=== PATIENT | female | born 1970 | race Caucasian/White ===

== ENCOUNTER 2017-06-29 19:46 | Emergency (ER) | payer OTHER ==
[~2017-06-29] VITALS: Ht 160 cm; Wt 103.1 kg
[2017-06-29] MEDS ORDERED: diphenhydrAMINE 50 MG/ML VIAL IVP ONE (21:00)
[2017-06-29] MEDS ORDERED: KETOROLAC 30 MG/ML VIAL. IV ONE (21:00)
[2017-06-29] MEDS ORDERED: IV NORMAL SALINE 1,000ML 1,000 ML IV ONE (21:00)
--- NOTE | 2017-06-29 21:58 | PHYS DOC ---
Past History Past Medical History: Asthma, COPD, Other Past Surgical History: Tubal ligation Smoking: Cigarettes Alcohol Use: Occasionally Drug Use: None Adult General Chief Complaint Chief Complaint: HEADACHE HPI HPI Patient is a 46 year old female who presents with complaint of headache. The patient states that over the past week she has had several episodes where she has had lightheadedness immediately followed by headache and numbness to the bilateral forehead and cheeks. Patient states that she had an episode approximately 1 hour prior to arrival. Patient does have history of migraine headaches and patient states that she takes medication at home which is prescribed by her primary doctor. Patient did not take this medication before coming in. Patient states that her symptoms started at rest. Patient does admit to history of stress and anxiety. Patient states that she has had major life changes take place over the past 2 weeks both good and bad. The patient denies any unilateral weakness, difficulty with speech or swallowing, loss of vision or doubling of vision. Patient has had no fevers. Patient does admit to photophobia. Review of Systems Review of Systems Constitutional: Denies fever or chills [] Eyes: Denies change in visual acuity, redness, or eye pain [] HENT: Denies nasal congestion or sore throat [] Respiratory: Denies cough or shortness of breath [] Cardiovascular: Denies chest pain or edema[] GI: Denies abdominal pain, nausea, vomiting, bloody stools or diarrhea [] : Denies dysuria or hematuria [] Musculoskeletal: Denies back pain or joint pain [] Integument: Denies rash or skin lesions [] Neurologic: Headache, facial numbness, denies focal weakness[] All other systems were reviewed and found to be within normal limits, except as documented in this note. Current Medications Current Medications Current Medications Medications (Trade) Dose Ordered Sig/Shirlene Start Time Stop Time Status Last Admin Dose Admin Diphenhydramine HCl (Benadryl) 50 mg 1X ONCE 06/29/17 21:00 06/29/17 21:01 DC 06/29/17 21:08 50 MG Ketorolac Tromethamine (Toradol) 30 mg 1X ONCE 06/29/17 21:00 06/29/17 21:01 DC Sodium Chloride 1,000 ml @ 1,000 mls/hr 1X ONCE 06/29/17 21:00 2/15/18 21:59 06/29/17 21:00 1,000 MLS/HR Allergies Allergies Allergies Coded Allergies Type Severity Reaction Last Updated Verified No Known Drug Allergies 10/31/14 No Physical Exam Physical Exam Constitutional: Alert, afebrile, vital signs stable, appears in mild to moderate discomfort. [] HENT: Normocephalic, atraumatic, bilateral external ears normal, oropharynx moist, no oral exudates, nose normal. [] Eyes: PERRLA, EOMI, mild photophobia present, conjunctiva normal, no discharge. [] Neck: Normal range of motion, no tenderness, supple, no stridor. [] Cardiovascular:Heart rate regular rhythm, no murmur [] Lungs & Thorax: Bilateral breath sounds clear to auscultation [] Abdomen: Bowel sounds normal, soft, no tenderness, no masses, no pulsatile masses. [] Skin: Warm, dry, no erythema, no rash. [] Back: No tenderness, no CVA tenderness. [] Extremities: No tenderness, no cyanosis, no clubbing, ROM intact, no edema. [] Neurologic: Alert and oriented X 3, normal motor function, normal sensory function, no focal deficits noted. [] EKG EKG Not performed[] Radiology/Procedures Radiology/Procedures Not performed[] Course & Med Decision Making Course & Med Decision Making Pertinent Labs and Imaging studies reviewed. (See chart for details) The patient was treated with IV fluids, Toradol, Benadryl, and Compazine. Patient's facial numbness has resolved. The patient states that she is feeling better at this time. The patient will be referred to Dr. Wang of neurology for outpatient evaluation of her migraine symptoms. Advised return emergency department for any worsening symptoms. Patient voiced understanding and in agreement with treatment plan. Dragon Disclaimer Dragon Disclaimer This electronic medical record was generated, in whole or in part, using a voice recognition dictation system. Departure Departure: Impression: Primary Impression: Migraine headache Disposition: 01 HOME, SELF-CARE Condition: IMPROVED Referrals: DONTAE BLACK (PCP) CHARISSE WANG MD Patient Instructions: Migraine Headache Additional Instructions: Follow-up with Dr. Wang in one week for reevaluation. Return to emergency department for any worsening symptoms. Problem Qualifiers Primary Impression: Migraine headache Migraine type: without aura Status migrainosus presence: without status migrainosus Intractability: not intractable Qualified Codes: G43.009 - Migraine without aura, not intractable, without status migrainosus PAPI MAYORGA MD Jun 29, 2017 21:58
[2017-06-29] MEDS ORDERED: PROCHLORPERAZINE 10 MG/2 ML VIAL. IV ONE (22:00)
[2017-06-29 22:07] VITALS: BP 126/73
--- NOTE | 2017-06-30 05:38 | EKG ---
[address] [address] Test Date: 2017-06-29 Test Time: 20:06:51 Pat Name: SOUMYA MUÑOZ Department: Room: Gender: F Appeals Writer: : 1970 Requested By: PAPI MAYORGA Order Number: [id number] Reading MD: Neeraj Valenzuela Measurements Intervals [place] Rate: 77 P: 0 MA: 128 QRS: 25 QRSD: 74 T: 16 QT: 374 QTc: 425 Interpretive Statements SINUS RHYTHM NORMAL ECG RI6.01 Compared to ECG 07/27/2015 08:16:53 ST (T wave) deviation no longer present Electronically Signed On 07-05-2017 9:31:36 TELEMARKETING AGENT by Neeraj Valenzuela
== END 2017-06-29 22:21 | disposition home or self-care (01) ==
LOC: ER 19:46
DX: G43.009 Migraine without aura, not intractable, without status migrainosus (principal); J44.9 Chronic obstructive pulmonary disease, unspecified; F41.9 Anxiety disorder, unspecified; F17.210 Nicotine dependence, cigarettes, uncomplicated
CPT/HCPCS: 96361; 96374; 96375; 99284; J0780; J1200; J1885; J7030

== ENCOUNTER 2018-02-01 23:41 | Observation (INO) | payer OTHER ==
[~2018-02-01] VITALS: Ht 160 cm; Wt 100.7 kg
[2018-02-02] MEDS ORDERED: CONTRAST GIVEN MC PRN (01:00)
[2018-02-02] MEDS ORDERED: IOHEXOL 300 MG/ML 75 ML VIAL. IV ONE (01:00)
[2018-02-02] MEDS ORDERED: LORazepam 2 MG/ML VIAL IV ONE (01:00)
[2018-02-02 01:07] LABS: BASO # 0.1 x10^3/uL (0.0-0.2); BASO % 1 % (0-3); EOS # 0.1 x10^3/uL (0.0-0.7); EOS % 0 % (0-3); HEMATOCRIT 40.2 % (36.0-47.0); HEMOGLOBIN 13.7 g/dL (12.0-15.5); LYMPH # 4.8 x10^3/uL (1.0-4.8); LYMPH % 28 % (24-48); MEAN CORPUSCULAR HEMOGLOBIN 31 pg (25-35); MEAN CORPUSCULAR HGB CONC 34 g/dL (31-37); MEAN CORPUSCULAR VOLUME 92 fL (79-100); MONO % 6 % (0-9); NEUT # 11.4 x10^3uL (1.8-7.7); NEUT % 66 % (31-73); PLATELET COUNT 399 x10^3/uL (140-400); RED BLOOD COUNT 4.37 x10^6/uL (3.50-5.40); RED CELL DISTRIBUTION WIDTH 13.3 % (11.5-14.5); WHITE BLOOD COUNT 17.4 x10^3/uL (4.0-11.0)
[2018-02-02 01:23] LABS: % BANDS 4 % (0-9); % LYMPHS 27 % (24-48); % MONOS 3 % (0-10); % SEGS 66 % (35-66)
[2018-02-02 01:24] LABS: PLT ESTIMATE ADEQUATE (ADEQUATE)
[2018-02-02 01:29] LABS: ALBUMIN 3.5 g/dL (3.4-5.0); ALBUMIN/GLOBULIN RATIO 0.9 (1.0-1.7); CALCIUM 9.4 mg/dL (8.5-10.1); GFR 59.2; TOTAL BILIRUBIN 0.3 mg/dL (0.2-1.0); TOTAL PROTEIN 7.2 g/dL (6.4-8.2)
--- NOTE | 2018-02-02 01:31 | RAD ---
Examination: CT angiography chest HISTORY: History of chest pain COMPARISON: 07/25/2015 TECHNIQUE: Axial CT angiographic images were performed with IV contrast. Coronal and sagittal 3-D MIP reformats are performed. Exposure: One or more of the following individualized dose reduction techniques were utilized for this examination: 1. Automated exposure control 2. Adjustment of the mA and/or kV according to patient size 3. Use of iterative reconstruction technique FINDINGS: The central airways are patent. Aberrant right subclavian artery is identified coursing posterior to the esophagus. There is no evidence of filling defect identified in the main pulmonary arterial trunk and right and left main pulmonary arteries and the visualized lobar, segmental branches of the pulmonary arteries. Coronary artery calcifications. The caliber of the aorta grossly appears unremarkable. There is a 7 mm round nodule identified in the right upper lobe of the lung similar to prior exam. Tiny cysts identified in the left upper lobe of the lungs similar to prior exam. The visualized liver, spleen, adrenals grossly appears unremarkable Cholecystectomy clips identified. Mild degenerative changes thoracic spine. IMPRESSION: 1. No evidence of pulmonary embolism. 2. Stable 7 mm nodule right upper lobe of the lung. 3. 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 Electronically signed by: Candelario Kearns MD (02/02/2018 1:27 AM) [facility]
[2018-02-02 01:32] LABS: POTASSIUM 4.1 mmol/L (3.5-5.1)
--- NOTE | 2018-02-02 01:32 | ED.ADGEN ---
Past History Past Medical History: Anxiety, Asthma, COPD, Diabetes, Migraines, Other Past Surgical History: Tubal ligation Smoking: Cigarettes Alcohol Use: Occasionally Drug Use: None Adult General Chief Complaint Chief Complaint SOA HPI HPI Patient is a 47-year-old female smoker with history of COPD, asthma who presents with persistent shortness of breath with dry cough 2 weeks. Patient has been evaluated for this complaint by her PCP and another specialist in clinic. Recently completed prednisone, Zithromax. She reports negative outpatient chest and chest x-ray. She is scheduled to see her doctor in the morning for reevaluation, but states that as her symptoms worsen she was instructed to go to the emergency department. No fever, chills, nausea vomiting or sweats. Reports some chest tightness denies chest wall no leg pain, swelling history of DVT, CAD, or congestive heart failure. No history of valvular heart disease. No other acute symptoms or complaints. [] Review of Systems Review of Systems Review symptoms as per history of present illness. All other review symptoms are negative. All other systems were reviewed and found to be within normal limits, except as documented in this note. Current Medications Current Medications Current Medications Medications (Trade) Dose Ordered Sig/Shirlene Start Time Stop Time Status Last Admin Dose Admin Info (Do NOT chart on this entry -- for MONITORING) 1 each PRN DAILY PRN 02/02/18 01:00 02/04/18 00:59 Iohexol (Omnipaque 300 Mg/ml) 75 ml 1X ONCE 02/02/18 01:00 02/02/18 01:01 DC 02/02/18 01:04 75 ML Lorazepam (Ativan) 1 mg 1X ONCE 02/02/18 01:00 02/02/18 01:01 DC 02/02/18 00:59 1 MG Allergies Allergies Allergies Coded Allergies Type Severity Reaction Last Updated Verified No Known Drug Allergies 10/31/14 No Physical Exam Physical Exam Constitutional: Well developed, well nourished, anxious[] HENT: Normocephalic, atraumatic, bilateral external ears normal, oropharynx moist, no oral exudates, nose normal. [] Eyes: PERRLA, EOMI, conjunctiva normal, no discharge. [] Neck: Normal range of motion, no tenderness, supple, no stridor. [] Cardiovascular:Heart rate regular rhythm, no murmur, negative Homans signs. [] Lungs & Thorax: Mild tachypnea, Bilateral breath sounds clear to auscultation [ ] Abdomen: Bowel sounds normal, soft, no tenderness. [] Skin: Warm, dry, no erythema, no rash. [] Back: No tenderness. [] Extremities: No tenderness, no cyanosis, no clubbing, ROM intact, no edema. [] Neurologic: Alert and oriented X 3, normal motor function, normal sensory function, no focal deficits noted. [] Current Patient Data Vital Signs Vital Signs Date Time Temp Pulse Resp B/P (MAP) Pulse Ox O2 Delivery O2 Flow Rate FiO2 02/02/18 01:50 71 20 117/90 (99) 96 Room Air Lab Results Laboratory Tests Test 02/02/18 00:52 White Blood Count 17.4 x10^3/uL (4.0-11.0) H Red Blood Count 4.37 x10^6/uL (3.50-5.40) Hemoglobin 13.7 g/dL (12.0-15.5) Hematocrit 40.2 % (36.0-47.0) Mean Corpuscular Volume 92 fL (79-100) Mean Corpuscular Hemoglobin 31 pg (25-35) Mean Corpuscular Hemoglobin Concent 34 g/dL (31-37) Red Cell Distribution Width 13.3 % (11.5-14.5) Platelet Count 399 x10^3/uL (140-400) Neutrophils (%) (Auto) 66 % (31-73) Lymphocytes (%) (Auto) 28 % (24-48) Monocytes (%) (Auto) 6 % (0-9) Eosinophils (%) (Auto) 0 % (0-3) Basophils (%) (Auto) 1 % (0-3) Neutrophils # (Auto) 11.4 x10^3uL (1.8-7.7) H Lymphocytes # (Auto) 4.8 x10^3/uL (1.0-4.8) Monocytes # (Auto) 1.0 x10^3/uL (0.0-1.1) Eosinophils # (Auto) 0.1 x10^3/uL (0.0-0.7) Basophils # (Auto) 0.1 x10^3/uL (0.0-0.2) Segmented Neutrophils % 66 % (35-66) Band Neutrophils % 4 % (0-9) Lymphocytes % 27 % (24-48) Monocytes % 3 % (0-10) Platelet Estimate Adequate (ADEQUATE) Erythrocyte Sedimentation Rate 15 (0-25) Sodium Level 136 mmol/L (136-145) Potassium Level 4.1 mmol/L (3.5-5.1) Chloride Level 101 mmol/L (98-107) Carbon Dioxide Level 23 mmol/L (21-32) Anion Gap 12 (6-14) Blood Urea Nitrogen 25 mg/dL (7-20) H Creatinine 1.0 mg/dL (0.6-1.0) Estimated GFR (Cockcroft-Gault) 59.2 BUN/Creatinine Ratio 25 (6-20) H Glucose Level 262 mg/dL (70-99) H Calcium Level 9.4 mg/dL (8.5-10.1) Total Bilirubin 0.3 mg/dL (0.2-1.0) Aspartate Amino Transferase (AST) 16 U/L (15-37) Alanine Aminotransferase (ALT) 21 U/L (14-59) Alkaline Phosphatase 85 U/L (46-116) Troponin I Quantitative < 0.017 ng/mL (0-0.055) C-Reactive Protein 1.8 mg/L (0-3.3) QL-Mfc-D-Type Natriuretic Peptide 75 pg/mL (0-124) Total Protein 7.2 g/dL (6.4-8.2) Albumin 3.5 g/dL (3.4-5.0) Albumin/Globulin Ratio 0.9 (1.0-1.7) L EKG EKG [EKG: Sinus rhythm, rate 68, no acute ST-T wave changes, QTC 4:15.] Radiology/Procedures Radiology/Procedures [CTA chest: No evidence of PE per radiology report] Course & Med Decision Making Course & Med Decision Making Pertinent Labs and Imaging studies reviewed. (See chart for details) [Patient's exam unremarkable other than exceptions of occasional cough and anxiety. Vital signs stable. Symptoms improved with treatment of anxiety. Lab, and imaging studies reviewed. Mild leukocytosis, possibly remnant of recent steroid use versus infection. Patient remains mild tachypnea despite Ativan. Will admit to the hospital service for further evaluation and treatment as the patient is uncomfortable going home and following up with her PCP in the a.m.] Final Impression Final Impression [1. Dyspnea] Gelacio Disclaimer Gelacio Disclaimer This electronic medical record was generated, in whole or in part, using a voice recognition dictation system. JUSTINA MCINTOSH DO Feb 02, 2018 01:32
[2018-02-02 02:36] VITALS: BP 105/74
[2018-02-02 03:25] LABS: CLARITY,URINE CLEAR; COLOR,URINE YELLOW; GLUCOSE,URINE 100 mg/dL (NEG)
[2018-02-02 03:26] LABS: BACTERIA,URINE 0 /HPF (0-FEW); BILIRUBIN,URINE NEG (NEG); NITRITE,URINE NEG (NEG); RBC,URINE RARE /HPF (0-2); SQUAMOUS EPITHELIAL CELL,UR OCC /LPF; UROBILINOGEN,URINE 0.2 mg/dL (0.2 mg/dL); WBC,URINE RARE /HPF (0-4)
[2018-02-02] MEDS ORDERED: Influenza vaccine per PROTOCOL. MC PRN (03:30)
[2018-02-02] MEDS ORDERED: ATOR20TA58 PO (04:11)
[2018-02-02] MEDS ORDERED: BUPR150T8 PO (04:11)
[2018-02-02] MEDS ORDERED: METF500T16 PO (04:11)
[2018-02-02 05:05] LABS: BGAS PH 7.43 (7.35-7.45)
[2018-02-02 05:18] VITALS: BP 111/71
[2018-02-02 08:45] LABS: CALCIUM 8.7 mg/dL (8.5-10.1); CREATININE 0.9 mg/dL (0.6-1.0); GFR 66.8; POTASSIUM 3.8 mmol/L (3.5-5.1)
[2018-02-02 08:58] LABS: HEMOGLOBIN 13.1 g/dL (12.0-15.5); RED BLOOD COUNT 4.24 x10^6/uL (3.50-5.40); RED CELL DISTRIBUTION WIDTH 13.2 % (11.5-14.5); WHITE BLOOD COUNT 13.3 x10^3/uL (4.0-11.0)
[2018-02-02] MEDS ORDERED: ATORVASTATIN CALCIUM 20 MG TABLET PO SCH (09:00)
[2018-02-02] MEDS ORDERED: buPROPion SR 150 MG TABLET.SA PO SCH (09:00)
--- NOTE | 2018-02-02 09:22 | PDOC2 ---
CONSULT Date of Admission DATE: 02/02/18 TIME: : Reason for Consult: cp Problem List Problems Medical Problems: (1) Dyspnea Status: Acute History of Present Illness Ms Payne is a 44 year old female with history of hyperlipidemia and newly diagnosed diabetes mellitus type 2. She presents with complaints of chest pain off and on the same as the pain she had in 2015 when she underwent heart cath. She also reports a feeling of being unable to catch her breath. She reports that her dyspnea and discomfort occur both at rest and with exertion. She recently finished antibiotic and steroid therapy for bronchitis. She denies additional symptoms. Her report concern that some of her symptoms may be anxiety related. She also expresses concern that her symptoms may interfere with a liposuction surgery she has planned in the near future. Past Medical History cardiac cath 07/2015 small focal myocardial bridge mid lad with possible mild spasm otherwise normal coronaries echo 07/2015 Normal LV systolic function. EF 60% No significant valvular abnormalities. asthma, hyperlipidemia, diabetes mellitus type II Past Surgical History cholecystectomy D and C knee surgery Family History significant for TIAs in her mother Her brother in his mid 30s and on autopsy was found to have extensive coronary disease Social History She recently quit smoking Social ETOH no illicit drugs Current Medications Current Medications Lorazepam (Ativan) 1 mg 1X ONCE IV Last administered on 02/02/18at 00:59; Start 02/02/18 at 01:00; Stop 02/02/18 at 01:01; Status DC Iohexol (Omnipaque 300 Mg/ml) 75 ml 1X ONCE IV Last administered on 02/02/18at 01:04; Start 02/02/18 at 01:00; Stop 02/02/18 at 01:01; Status DC Info (Do NOT chart on this entry -- for MONITORING) 1 each PRN DAILY PRN MC SEE COMMENTS; Start 02/02/18 at 01:00; Stop 02/04/18 at 00:59 Info (FLU VACCINE per PROTOCOL) 1 ea PRN 1X PRN MC PER PROTOCOL; Start at 03:30; Status UNV Influenza Virus Vaccine (Afluria Trivalent [id number] Syringe) 0.5 ml ONCE ONCE VAX IM ; Start 02/02/18 at 09:00; Stop 02/02/18 at 09:01; Status DC Atorvastatin Calcium (Lipitor) 20 mg DAILY PO Last administered on 02/02/18at 08 :50; Start 02/02/18 at 09:00 Bupropion HCl (Wellbutrin Sr) 150 mg BID PO Last administered on 02/02/18at 08: 50; Start 02/02/18 at 09:00 Metformin HCl (Glucophage) 1,000 mg DAILYWBKFT PO ; Start 02/04/18 at 08:00 Active Scripts Active Reported Wellbutrin Sr (Bupropion Hcl) 150 Mg Tablet.er 150 Mg PO BID Atorvastatin Calcium 20 Mg Tablet 20 Mg PO DAILY Metformin Hcl 500 Mg Tablet 1,000 Mg PO DAILY08 Allergies: Coded Allergies: No Known Drug Allergies (Unverified , 10/31/14) Review of System as per HPI or negative General: Alert, Oriented X3, Cooperative, No acute distress HEENT: Atraumatic, EOMI Lungs: Clear to auscultation, Normal air movement Heart: Regular rate, Normal S1, Normal S2, Other (no significant murmurs, no gallops, clicks or rubs) Abdomen: Normal bowel sounds, Soft, No tenderness Extremities: No cyanosis, Normal pulses Neuro: Normal speech, Cranial nerves 3-12 NL Psych/Mental Status: Mental status NL, Mood NL VITALS Vital Signs Date Time Temp Pulse Resp B/P (MAP) Pulse Ox O2 Delivery O2 Flow Rate FiO2 02/02/18 05:18 97.8 71 18 111/71 (84) 99 Room Air Labs Laboratory Tests Test 02/02/18 00:52 02/02/18 03:05 02/02/18 04:50 02/02/18 08:20 White Blood Count 17.4 x10^3/uL (4.0-11.0) Red Blood Count 4.37 x10^6/uL (3.50-5.40) Hemoglobin 13.7 g/dL (12.0-15.5) Hematocrit 40.2 % (36.0-47.0) Mean Corpuscular Volume 92 fL (79-100) Mean Corpuscular Hemoglobin 31 pg (25-35) Mean Corpuscular Hemoglobin Concent 34 g/dL (31-37) Red Cell Distribution Width 13.3 % (11.5-14.5) Platelet Count 399 x10^3/uL (140-400) Neutrophils (%) (Auto) 66 % (31-73) Lymphocytes (%) (Auto) 28 % (24-48) Monocytes (%) (Auto) 6 % (0-9) Eosinophils (%) (Auto) 0 % (0-3) Basophils (%) (Auto) 1 % (0-3) Neutrophils # (Auto) 11.4 x10^3uL (1.8-7.7) Lymphocytes # (Auto) 4.8 x10^3/uL (1.0-4.8) Monocytes # (Auto) 1.0 x10^3/uL (0.0-1.1) Eosinophils # (Auto) 0.1 x10^3/uL (0.0-0.7) Basophils # (Auto) 0.1 x10^3/uL (0.0-0.2) Segmented Neutrophils % 66 % (35-66) Band Neutrophils % 4 % (0-9) Lymphocytes % 27 % (24-48) Monocytes % 3 % (0-10) Platelet Estimate Adequate (ADEQUATE) Erythrocyte Sedimentation Rate 15 (0-25) Sodium Level 136 mmol/L (136-145) 138 mmol/L (136-145) Potassium Level 4.1 mmol/L (3.5-5.1) 3.8 mmol/L (3.5-5.1) Chloride Level 101 mmol/L (98-107) 104 mmol/L (98-107) Carbon Dioxide Level 23 mmol/L (21-32) 27 mmol/L (21-32) Anion Gap 12 (6-14) 7 (6-14) Blood Urea Nitrogen 25 mg/dL (7-20) 20 mg/dL (7-20) Creatinine 1.0 mg/dL (0.6-1.0) 0.9 mg/dL (0.6-1.0) Estimated GFR (Cockcroft-Gault) 59.2 66.8 BUN/Creatinine Ratio 25 (6-20) Glucose Level 262 mg/dL (70-99) 208 mg/dL (70-99) Calcium Level 9.4 mg/dL (8.5-10.1) 8.7 mg/dL (8.5-10.1) Total Bilirubin 0.3 mg/dL (0.2-1.0) Aspartate Amino Transf (AST/SGOT) 16 U/L (15-37) Alanine Aminotransferase (ALT/SGPT) 21 U/L (14-59) Alkaline Phosphatase 85 U/L (46-116) Troponin I Quantitative < 0.017 ng/mL (0-0.055) < 0.017 ng/mL (0-0.055) C-Reactive Protein 1.8 mg/L (0-3.3) GB-Ybm-L-Type Natriuretic Peptide 75 pg/mL (0-124) Total Protein 7.2 g/dL (6.4-8.2) Albumin 3.5 g/dL (3.4-5.0) Albumin/Globulin Ratio 0.9 (1.0-1.7) Urine Collection Type Unknown Urine Color Yellow Urine Clarity Clear Urine pH 6.0 Urine Specific [place] 1.015 Urine Protein Neg (NEG-TRACE) Urine Glucose (UA) 100 mg/dL (NEG) Urine Ketones (Stick) Trace mg/dL (NEG) Urine Blood Small (NEG) Urine Nitrite Neg (NEG) Urine Bilirubin Neg (NEG) Urine Urobilinogen Dipstick 0.2 mg/dL (0.2 mg/dL) Urine Leukocyte Esterase Neg (NEG) Urine RBC Rare /HPF (0-2) Urine WBC Rare /HPF (0-4) Urine Squamous Epithelial Cells Occ /LPF Urine Bacteria 0 /HPF (0-FEW) Blood Gas pH 7.43 (7.35-7.45) Blood Gas PCO2 35 mmHg (35-45) Blood Gas PO2 82 mmHg (80-100) Blood Gas HCO3 24 mmol/L (22-26) Arterial Bld O2 Saturation (Calc) 97 % (92-99) FiO2 21 % Images CTA - IMPRESSION: 1. No evidence of pulmonary embolism. 2. Stable 7 mm nodule right upper lobe of the lung. 3. 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 EKG - unavailable Assessment/Plan 1. CP - Sen negative x 2 sets. Pain free currently. Prior cardiac cath as above. Will add Ranexa and consider cardizem if blood pressure remains stable for bridging and spasm. Will check echo and set up for outpatient MPI next week as she will need a surgical clearance. 2. HTN - controlled 3. HLD - check lipids 4. DM - as per PCP MUKESH SWAIN APRN Feb 02, 2018 09:22
--- NOTE | 2018-02-02 09:58 | EKG ---
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
[2018-02-02 11:00] VITALS: BP 114/79
[2018-02-02] MEDS ORDERED: ASPIRIN ENTERIC COATED 81 MG TABLET.DR. PO SCH (11:30)
[2018-02-02] MEDS ORDERED: RANOLAZINE 500 MG TAB.ER.12H PO SCH (13:00)
[2018-02-02 15:10] VITALS: BP 101/68
--- NOTE | 2018-02-02 15:42 | CARD ---
MR#: [id number] Date of Study: 02/02/2018 Ordering Physician: SILVANO MOORE, Referring Physician: SILVANO MOORE Tech: Gabrielle Barroso RDCS APPROVED REPORT EXAM: Two-dimensional and M-mode echocardiogram with Doppler and color Doppler. Other Information Quality : Good INDICATION Chest Pain RISK FACTORS Smoking 2D DIMENSIONS RVDd2.8 (2.9-3.5cm)Left Atrium(2D)3.3 (1.6-4.0cm) IVSd0.9 (0.7-1.1cm)Aortic Root(2D)2.9 (2.0-3.7cm) LVDd5.1 (3.9-5.9cm)LVOT Diameter2.2 (1.8-2.4cm) PWd0.9 (0.7-1.1cm)LVDs3.3 (2.5-4.0cm) FS (%) 34.6 %SV78.0 ml LVEF(%)60.0 (>50%) Aortic Valve AoV Peak Jorge.152.5cm/Jasson Peak GR.9.3mmHg LVOT Peak Jorge.123.8cm/sAVA (VMAX)3.07cm2 Mitral Valve MV E Cflanfqy61.0cm/sMV DECEL YXAI538oe MV A Zymjrxwa56.7cm/sE/A Ratio1.2 Tricuspid Valve TR P. Sjkmrjmj135wt/sRAP CGXMSKWD1kuQm TR Peak Gr.60isZnAFOD33duDs Pulmonary Vein S1 Zpicstuz21.1cm/sD2 Eixelmgb09.2cm/s LEFT VENTRICLE The left ventricle is normal size. There is normal left ventricular wall thickness. The left ventricu lar systolic function is normal. The Ejection Fraction is 55-60%. There is normal LV segmental wall m otion. The left ventricular diastolic function and filling is normal for age. RIGHT VENTRICLE The right ventricle is normal size. The right ventricular systolic function is normal. ATRIA The left atrium size is normal. The right atrium size is normal. The interatrial septum is intact wit h no evidence for an atrial septal defect or patent foramen ovale as noted on 2-D or Doppler imaging. AORTIC VALVE The aortic valve is calcified but opens well. Doppler and Color Flow revealed no significant aortic r egurgitation. There is no significant aortic valvular stenosis. MITRAL VALVE The mitral valve is normal in structure and function. There is no evidence of mitral valve prolapse. There is no mitral valve stenosis. Doppler and Color-flow revealed trace to mild mitral regurgitation . TRICUSPID VALVE The tricuspid valve is normal in structure and function. Doppler and Color Flow revealed trace tricus pid regurgitation. The PA pressure was estimated at 26 mmHg. There is no tricuspid valve stenosis. PULMONIC VALVE The pulmonic valve is not well visualized. Doppler and Color Flow revealed no pulmonic valvular regur gitation. There is no pulmonic valvular stenosis. GREAT VESSELS The aortic root is normal in size. The ascending aorta is normal in size. The IVC is normal in size a nd collapses >50% with inspiration. PERICARDIAL EFFUSION There is no evidence of significant pericardial effusion. Critical Notification Critical Value: No <Conclusion> The left ventricular systolic function is normal. The Ejection Fraction is 55-60%. There is normal LV segmental wall motion. Trace to mild mitral regurgitation. Trace tricuspid regurgitation. The PA pressure was estimated at 26 mmHg. There is no evidence of significant pericardial effusion. Signed by : Dillon Maurice, Electronically Approved : 02/02/2018 15:41:39
[2018-02-02] MEDS ORDERED: RANO500T2 PO (16:33)
--- NOTE | 2018-02-02 23:11 | HP ---
ADMIT DATE: 02/02/2018 HISTORY OF PRESENT ILLNESS: The patient is a 47-year-old female patient, who basically came to the Emergency Room with persistent shortness of breath and dry cough for 2 weeks. The patient has been evaluated for this complaint by her primary care physician and other specialists in the clinic. She has recently completed prednisone and Zithromax. She reports a negative outpatient chest CT scan and chest x-ray. She is scheduled to see her doctor in the morning for reevaluation but states that her symptom worsened, she was instructed to go to the Emergency Department. She denied any fever, chills, nausea, vomiting or sweats. On questioning her further, she stated that she is actually having difficulty taking a deep breath at rest. The pain is mostly retrosternal. According to her, she has had Botox treatment for headaches done about 2 weeks ago and about a week later, she started having these symptoms. She was basically admitted after extensive evaluation in the Emergency Room that included an EKG. Her lab work showed a white cell count that was high at 17,400. Her blood gases were within normal range and her first set of cardiac enzymes showed that the troponin to be less than 0.017. Her EKG showed that she was in sinus rhythm at a rate of 68 beats per minute with no acute ST-T changes, she was admitted to do more sets of cardiac enzyme and to consult the cardiology team and also given that she has this Botox injection, it was extensively injected along her both shoulders, back of the neck, the side of the head and also the forehead. PAST MEDICAL HISTORY: Significant for type 2 diabetes, hyperlipidemia, chronic bronchitis, and chronic migraine headache for which she received Botox for the second time. She also underwent cardiac catheterization about 2-1/2 years ago. PAST SURGICAL HISTORY: Significant for cholecystectomy, wisdom tooth extraction, tubal ligation, left knee arthroscopic surgery x 2, uterine ablation and ovarian cyst removal. ALLERGIES: She has no known drug allergies. MEDICATIONS: She is currently on following medications: She is on atorvastatin calcium 20 mg at bedtime, Wellbutrin-SR 150 mg p.o. b.i.d., this is to help with smoking cessation and she is on metformin 500 mg, she takes 1000 mg once a day. FAMILY HISTORY: She has 3 brothers and 3 sisters. Her oldest sister has apparently bradycardia and hypoxia for which she is on oxygen. Her father is still alive at age of 71, has heart problem and diabetes. Her mother is alive at age of 69, she has CVA and myocardial infarction at the age of 65. SOCIAL HISTORY: She is , smokes 6-8 cigarettes per day. She does not drink alcohol or use any recreational drugs. 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 REVIEW OF SYSTEMS: The patient denied any blurring of vision, cataract, glaucoma or macular degeneration. Denied any diplopia. Denied any earache, tinnitus or sensorineural deafness. Denied any nosebleeds, stuffy nose or postnasal drip. Denied any sore throat, sore tongue, toothache, hoarseness of voice or difficulty swallowing. Denied any nausea, vomiting, diarrhea or constipation. Denied any hematemesis, melena or hematochezia. Denied any dysuria, frequency or hematuria. He did complain of chest pain and shortness of breath, but denied any orthopnea or paroxysmal nocturnal dyspnea. Did complain of cough, which is dry. Denied any chills, rigors or fever. PHYSICAL EXAMINATION: GENERAL: When I examined her, she was resting slightly propped up in bed, in no apparent respiratory distress. No pallor, jaundice or cyanosis. No lymphadenopathy, no thyromegaly. No jugular venous distension. No lower limb edema. VITAL SIGNS: Her heart rate was 71, blood pressure was 111/71, temperature was 97.8, respiratory rate was 18 and oxygen saturation was 99% on room air. HEAD: Showed normocephalic, atraumatic. NECK: Supple. HEART: Showed normal first and second sounds. No gallop, rub or murmur. CHEST: Clear to auscultation. No crepitation or rhonchi. ABDOMEN: Distended, soft, nontender. NEUROLOGIC: She was awake, alert, responding appropriately. All her cranial nerves intact. EXTREMITIES: She moves extremities without difficulty. LABORATORY DATA: Her lab work on arrival showed a white cell count of 17,400, hemoglobin 13.7, hematocrit 40, MCV 92, and platelet count of 399,000. Her blood gases showed a pH of 7.43, pCO2 of 35, pO2 of 82, bicarbonate 24, and oxygen saturation was 97% on FiO2 of 21%. Her chemistry showed that her serum sodium was 136, potassium 4.1, chloride 101, bicarbonate 23, anion gap of 12, BUN 25, creatinine 1, estimated GFR was 59 mL per minute. Her glucose was 262, calcium was 9.4. Total bilirubin, AST, ALT, alkaline phosphatase were normal. Her beta-natriuretic peptide was 75. Total protein was 7.2, albumin was 3.5. Urinalysis showed the urine was yellow, clear with a pH of 6, specific gravity of 1.015. The urine was negative for protein. There was small amount of glucose, trace of ketones, small amount of blood, negative for nitrite and leukocyte esterase. There were rare rbc's, rare wbc's, and no bacteria. She did have a CT scan of the chest with CT angio of the chest, which showed that the patient has aberrant right subclavian artery was identified coursing posterior to the esophagus. There was no evidence of filling defects identified in the main pulmonary arterial trunk and right and left main pulmonary arteries, the visualized lobar, segmental branches of the pulmonary arteries, coronary artery calcification. The caliber of the aorta grossly appears unremarkable. There was a 7 mm round nodule identified in the right upper lobe of the lung, similar to prior exam, tiny cyst identified in the left upper lobe of the lungs similar to prior exam. The visualized liver, spleen, adrenals grossly appear unremarkable. Cholecystectomy clips identified. Mild degenerative changes of thoracic spine and the impression was basically has no evidence of pulmonary embolism, stable 7 mm nodule in the right upper lobe of the lung. Aberrant right subclavian artery, likely developmental. Her first set of cardiac enzyme was 0.017. The patient was admitted to do 2 more sets of cardiac enzyme, consult the Cardiology team as well as neurologist and decide on further management accordingly. SILVANO MOORE MD DR: MOE/mario JOB#: [id number] / [id number]
[2018-02-04] MEDS ORDERED: metFORMIN 500 MG TABLET PO SCH (08:00)
== END 2018-02-02 18:58 | disposition home or self-care (01) ==
LOC: ER 23:41 → 1 SOUTH 02-02 02:00 → INTOOBSV 02-02 02:00
PROVIDERS: ADMIT Internal Medicine; ATTEND Internal Medicine
DX: R07.9 Chest pain, unspecified (principal); E78.5 Hyperlipidemia, unspecified; E11.9 Type 2 diabetes mellitus without complications; G43.909 Migraine, unspecified, not intractable, without status migrainosus; R06.00 Dyspnea, unspecified; J44.9 Chronic obstructive pulmonary disease, unspecified; F41.9 Anxiety disorder, unspecified; F17.210 Nicotine dependence, cigarettes, uncomplicated; I10 Essential (primary) hypertension; Z82.3 Family history of stroke; Z82.49 Family history of ischemic heart disease and other diseases of the circulatory system; Z83.3 Family history of diabetes mellitus; Z98.51 Tubal ligation status; Z79.899 Other long term (current) drug therapy; Z90.49 Acquired absence of other specified parts of digestive tract; Z23 Encounter for immunization
CPT/HCPCS: 36415; 36600; 71275; 80048; 80053; 80061; 81001; 82803; 83880; 84484; 85007; 85025; 85027; 85651; 86140; 93005; 93306; 96374; 99285; G0378; J2060; Q9967; G0379

== ENCOUNTER → 2018-05-03 | Outpatient (CLI) | payer BC, OTHER ==
[~2018-05-03] MED LIST: ATOR20TA58 PO; BUPR150T8 PO; METF500T16 PO; RANO500T2 PO
[2018-05-03] MEDS: IOHEXOL 300 MG/ML 75 ML VIAL. IV ONE (08:56)
--- NOTE | 2018-05-03 10:41 | RAD ---
CLINICAL HISTORY: EPIGASTRIC/CHEST PAIN, SHORT OF AIR. 7M5MLS OMNI 300 IV CONTRAST. COMPARISON: None. TECHNIQUE: Multiphase CT angiography of the abdomen was performed during the arterial phase. Multiplanar reconstruction with 3-D MIP images generated ---PQRS compliance statement - One or more of the following individualized dose reduction techniques were utilized for this study: 1. Automated exposure control 2. Adjustment of the mA and/or kV according to patient size 3. Use of iterative reconstruction technique--- FINDINGS: CT angiogram: The aorta is normal in caliber throughout the visualized portions. No aneurysm. Intermittent atherosclerotic calcifications without luminal irregularity/narrowing. At the diaphragmatic hiatus the aorta measures approximately 1.8 cm. The infrarenal aorta measures approximately 1.3 cm. The common iliac arteries are also normal in caliber. The origins of the celiac trunk, SMA and REYMUNDO are normal. Single bilateral renal arteries are noted, patent throughout. Other Findings: Lower chest: A minimal portion of the lung bases is visualized. Visualized portions of the lungs are clear. Heart is unremarkable Abdomen: Within the constraints of arterial phase imaging, no focal liver lesion. Cholecystectomy clips are seen. No biliary ductal dilatation. Spleen is unremarkable. Adrenal glands and pancreas are unremarkable. Utilized portions of small and large bowel are normal in caliber without evidence of bowel obstruction. No abdominal ascites, pneumoperitoneum or lymphadenopathy. Small fat-containing periumbilical hernia is seen. Bones: Osseous structures are grossly unremarkable. IMPRESSION: 1. Abdominal aorta is normal in caliber throughout without aneurysmal dilatation or significant stenosis. The main branches are also widely patent without significant narrowing. 2. Cholecystectomy 3. Small fat-containing periumbilical hernia. Electronically signed by: Benito Bryan MD (05/03/2018 10:37 AM) [facility]
--- NOTE | 2018-05-03 17:04 | RAD ---
CHEST PA LATERAL Clinical indications: EPIGASTRIC/CHEST PAIN WITH SHORT OF AIR COMPARISON: July 25, 2015. Findings: No acute lung infiltrate or pleural effusion or pulmonary edema or lung mass or pneumothorax is seen. The heart size, pulmonary vasculature, mediastinum and both rod are unremarkable. The osseous structures appear intact. Impression: No acute radiographic abnormality is seen. Electronically signed by: Stevie Yousif MD (05/03/2018 5:00 PM) [place] [id number]
== END | disposition home or self-care (01) ==
LOC: DXRAD 08:23
PROVIDERS: ATTEND Internal Medicine Gastroenterology
DX: K42.9 Umbilical hernia without obstruction or gangrene (principal); R07.89 Other chest pain; Z90.49 Acquired absence of other specified parts of digestive tract
CPT/HCPCS: 71046; 74175; Q9967

== ENCOUNTER → 2018-05-25 | Outpatient (CLI) | payer BC ==
--- NOTE | 2018-05-25 12:44 | RAD ---
EXAM: Nuclear gastric emptying scan. HISTORY: Distention. Full feeling in stomach. COMPARISON: None. TECHNIQUE: Serial static images were obtained over the stomach following oral administration of 2.0 mCi of 99m-Tc sulfur colloid. FINDINGS: The stomach empties into the small bowel without evidence of reflux in the area of the esophagus. There is 95% retained tracer activity within the stomach at one hour, 68% retained tracer activity within the stomach at 2 hours, 55% retained tracer activity within the stomach at 3 hours, and 24% retained tracer activity within the stomach at 4 hours. IMPRESSION: Delayed gastric emptying, with a gastric imaging half-time of greater than 3 hours. Electronically signed by: Mirian Liu MD (05/25/2018 12:40 PM) [place] [id number]
== END | disposition home or self-care (01) ==
LOC: NM 07:37
PROVIDERS: ATTEND Internal Medicine Gastroenterology
DX: K30 Functional dyspepsia (principal)
CPT/HCPCS: 78264; A9541

== ENCOUNTER 2019-10-25 15:21 | Emergency (ER) | payer BC ==
[~2019-10-25] VITALS: Ht 160 cm; Wt 102.7 kg
[2019-10-25 15:21] VITALS: BP 141/73
[2019-10-25] MEDS ORDERED: IV NORMAL SALINE 1,000ML 1,000 ML IV SCH (15:26)
--- NOTE | 2019-10-25 16:06 | PHYS DOC ---
Past History Past Medical History: Diabetes, High Cholesterol, Hypertension, Migraines, Other Additional Past Medical Histor: Gastroparesis Past Surgical History: Cholecystectomy Additional Past Surgical Histo: L rotator cuff repair x 3 Smoking: Cigarettes Alcohol Use: None Drug Use: None General Adult EDM: Chief Complaint: COUGH HPI: HPI: 49 year old female presents with history of sore throat, nonproductive cough, shortness of breath, and headache x 1 week. Patient reports she was recently seen in [facility] ED x 2 the last 2 days. Reports concern she is "going to " and has COVID-19. Denies trauma. Denies leg swelling or calf tenderness. Review of Systems: Review of Systems: Constitutional: Reports subjective fever and chills Eyes: Denies change in visual acuity, or eye pain HENT: Denies nasal congestion; reports sore throat Respiratory: Reports nonproductive cough and shortness of breath Cardiovascular: Denies chest pain or palpitations GI: Denies abdominal pain, nausea, or vomiting : Denies dysuria or hematuria Musculoskeletal: Denies back pain or joint pain Integument: Denies rash or skin lesions Neurologic: Reports headache; denies focal weakness or sensory changes Complete systems were reviewed and found to be within normal limits, except as documented in this note. Heart Score: HEART Score for Chest Pain: HEART Score for Chest Pain Response (Comments) Value History Slighlty/Non-Suspicious 0 ECG Normal 0 Age >45 - < 65 1 Risk Factors >3 Risk Factors or Hx CAD 2 Troponin < Normal Limit 0 Total 3 Current Medications: Current Meds: Current Medications Medications (Trade) Dose Ordered [facility] Start Time Stop Time Status Last Admin Dose Admin Sodium Chloride 1,000 ml @ 1,000 mls/hr Q1H 10/25/19 15:26 10/25/19 16:25 Allergies: Allergies: Allergies Coded Allergies Type Severity Reaction Last Updated Verified No Known Drug Allergies 10/25/19 No Physical Exam: PE: Constitutional: Well developed, well nourished, nontoxic in appearance HENT: Normocephalic, atraumatic Eyes: PERRL, EOMI, conjunctiva normal, no discharge Neck: Normal range of motion, no tenderness, supple, no meningeal signs Lungs & Thorax: No respiratory distress, no accessory muscle use, equal chest rise and fall Abdomen: Soft, no tenderness Skin: Warm, dry, no erythema Extremities: No tenderness, ROM intact, no edema Neurologic: Alert and oriented X 3, motor and sensory functions intact, no focal deficits noted Psychologic: Affect normal, judgement normal EKG: EKG: @1554 NSR 79bpm, NO ST elevation, QRS 74ms, QT/QTc 382/444ms Radiology/Procedures: Radiology/Procedures: PROCEDURE: CT ANGIOGRAPHY CHEST Exam: CT of chest with contrast INDICATION: Short of air, history of recent surgery TECHNIQUE: Sequential axial images through the chest obtained following the administration of 90 mL of Omni 350 IV contrast. Sagittal and coronal reformatted images were reconstructed from the axial data and reviewed. 3-D reformatted images were reconstructed from the axial data and reviewed. Comparisons: None FINDINGS: Visualized portions of the thyroid are unremarkable. No enlarged mediastinal lymph nodes. Heart size is normal. No pericardial effusion. Thoracic aorta has a normal course and caliber. There is an aberrant right subclavian artery with a retroesophageal course. Pulmonary artery is not enlarged. No pulmonary embolus identified within the main, lobar or segmental pulmonary arteries. Airways are patent. No consolidation or pneumothorax. 5 mm nodule in the right upper lobe series 4 image 31. No pleural effusion or thickening. Visualized upper abdomen is unremarkable. No suspicious osseous lesions or acute fractures. IMPRESSION: 1. No pulmonary embolus identified within the main, lobar or segmental pulmonary arteries. 2. A 5 mm nodule in the right upper lobe. In a low-risk patient no further follow-up imaging is recommended. In a high-risk patient optional one-year follow-up CT can performed. Exposure: One or more of the following in the visualized dose reduction techniques were utilized for this examination: 1. Automated exposure control 2. Adjustment of the MA and/or KV according to patient size 3. Use of iterative of reconstructive technique Electronically signed by: Sarah Reynoso MD (10/25/2019 5:23 PM) [id number] Course & Med Decision Making: Course & Med Decision Making Pertinent Labs and Imaging studies reviewed. (See chart for details) Patient reports 1 week history of URI symptoms, subjective fever/chills, and headache. Sats stable on RA. Afebrile. Physical exam without significant findings. Patient neurologically intact. Obtained ED report visits from [facility]. Patient with normal CXR. Initial visit from 2 days ago with lactic >4 which improved after IVF hydration. Yesterday's work up with lactic acid in 2s. Patient also tested for COVID-19 and per phone report from ED RN it came back "negative". EKG stable. Labs obtained and posted to chart. Troponin WNL. Lactic acid again >4. SIRS criteria not met. CTA chest without acute process. IVF bolusing x 2L ordered. Rapid influenza, rapid strep, and monospot negative. Discussed results with patient who repots since testing results have come back fairly normal, she request to be discharged home. Patient stable for discharge with outpatient follow-up with PCP. Recommend increased fluid hydration at home. Discussed findings and plan with patient, who acknowledges understanding and agreement. COVID-19 CRITERIA: The patient was evaluated during the global COVID-19 pandemic, and that diagnosis was suspected/considered upon their initial presentation. Their evaluation, treatment and testing was consistent with current guidelines for patients who present with complaints or symptoms that may be related to COVID-19. Gelacio Disclaimer: Gelacio Disclaimer: This electronic medical record was generated, in whole or in part, using a voice recognition dictation system. Departure Departure: Impression: Primary Impression: Upper respiratory infection Qualified Codes: J06.9 - Acute upper respiratory infection, unspecified Additional Impressions: Lactic acidosis Headache Qualified Codes: R51 - Headache Disposition: 01 HOME/RESIDENCE PRIOR TO ADM Condition: STABLE Referrals: PCP,NO (PCP) Patient Instructions: Headache, FAQs, Lactic Acid, Lactate, Upper Respiratory Infection, Adult, [id number] Additional Instructions: Increase fluid hydration and follow closely with your family physician. Scripts Codeine Phosphate/Guaifenesin (Guaifen-Codeine 200-20 mg/10Ml) 10 Ml Liquid 10 ML PO Q4HRS PRN for COUGH, #200 LIQUID Prov: LONDON ROUSE DO 10/25/19 Benzonatate (TESSALON PERLE) 100 Mg Capsule 1 CAP PO TID PRN for COUGH, #20 CAP Prov: LONDON ROUSE DO 10/25/19 Justification of Admission: Justification of Admission: Justification of Admission Dx: N/A COVID-19 Assessment COVID-19 Patient Risks: Age 65 or older: No Sign of co-morbidity: Yes Exp to person + for COVID: No Exp to PUI: No Travel from affected area: Yes Lower respiratory symptoms: Yes Fever: Yes PPE Use: Full PPE with N95 mask or PAPR: Yes LONDON ROUSE DO Oct 25, 2019 16:06
[2019-10-25] MEDS ORDERED: EMPA10TA PO (16:11)
[2019-10-25] MEDS ORDERED: IOHEXOL 350 MG/ML 100 ML VIAL. IV ONE (16:15)
[2019-10-25] MEDS ORDERED: METOCLOPRAMIDE HCL 10 MG/2 ML VIAL. IVP ONE (16:15)
[2019-10-25] MEDS ORDERED: KETOROLAC 15 MG/ML VIAL. IVP ONE (16:15)
[2019-10-25] MEDS ORDERED: diphenhydrAMINE 50 MG/ML VIAL IVP ONE (16:15)
[2019-10-25] MEDS ORDERED: DEXAMETHASONE SOD PHOS 10 MG/ML VIAL IV ONE (16:15)
[2019-10-25 16:29] LABS: BASO # 0.1 x10^3/uL (0.0-0.2); BASO % 1 % (0-3); EOS % 0 % (0-3); HEMATOCRIT 39.6 % (36.0-47.0); HEMOGLOBIN 13.3 g/dL (12.0-15.5); LYMPH # 2.9 x10^3/uL (1.0-4.8); LYMPH % 40 % (24-48); MEAN CORPUSCULAR HEMOGLOBIN 32 pg (25-35); MEAN CORPUSCULAR HGB CONC 33 g/dL (31-37); MEAN CORPUSCULAR VOLUME 94 fL (79-100); MONO # 0.5 x10^3/uL (0.0-1.1); MONO % 7 % (0-9); NEUT # 3.7 x10^3uL (1.8-7.7); NEUT % 52 % (31-73); PLATELET COUNT 275 x10^3/uL (140-400); RED CELL DISTRIBUTION WIDTH 13.8 % (11.5-14.5); WHITE BLOOD COUNT 7.1 x10^3/uL (4.0-11.0)
[2019-10-25 16:36] LABS: ANION GAP 15 (6-14); BLOOD UREA NITROGEN 14 mg/dL (7-20); BUN/CREATININE RATIO 14 (6-20); CALCIUM 9.2 mg/dL (8.5-10.1); CARBON DIOXIDE 22 mmol/L (21-32); CHLORIDE 106 mmol/L (98-107); GFR 58.7; GLUCOSE 209 mg/dL (70-99); POTASSIUM 3.7 mmol/L (3.5-5.1); SODIUM 143 mmol/L (136-145)
--- NOTE | 2019-10-25 16:42 | EKG ---
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
[2019-10-25 16:57] LABS: INFLUENZA A PATIENT NEGATIVE (NEGATIVE); INFLUENZA B PATIENT NEGATIVE (NEGATIVE)
[2019-10-25 17:03] LABS: ALBUMIN 3.4 g/dL (3.4-5.0); ALBUMIN/GLOBULIN RATIO 0.9 (1.0-1.7); ALK PHOS 74 U/L (46-116); ALT (SGPT) 22 U/L (14-59); AST (SGOT) 8 U/L (15-37); TOTAL BILIRUBIN 0.2 mg/dL (0.2-1.0)
[2019-10-25 17:12] LABS: BACTERIA,URINE 0 /HPF (0-FEW); BILIRUBIN,URINE NEG (NEG); CLARITY,URINE CLEAR; COLOR,URINE YELLOW; GLUCOSE,URINE NEG (NEG); NITRITE,URINE NEG (NEG); RBC,URINE OCC /HPF (0-2); SQUAMOUS EPITHELIAL CELL,UR MOD /LPF; UROBILINOGEN,URINE 0.2 mg/dL (0.2 mg/dL); WBC,URINE OCC /HPF (0-4)
[2019-10-25] MEDS ORDERED: IV NORMAL SALINE 1,000ML 1,000 ML IV ONE (17:15)
[2019-10-25 17:24] LABS: BARBITURATES NEG (NEG); BENZODIAZEPINES NEG (NEG); CANNABINOIDS NEG (NEG); COCAINE NEG (NEG); METHADONE NEG (NEG); OPIATES NEG (NEG); PHENCYCLIDINE NEG (NEG)
[2019-10-25 17:25] LABS: AMPHETAMINE/METHAMPHETAMINE NEG (NEG)
--- NOTE | 2019-10-25 17:26 | RAD ---
Exam: CT of chest with contrast INDICATION: Short of air, history of recent surgery TECHNIQUE: Sequential axial images through the chest obtained following the administration of 90 mL of Omni 350 IV contrast. Sagittal and coronal reformatted images were reconstructed from the axial data and reviewed. 3-D reformatted images were reconstructed from the axial data and reviewed. Comparisons: None FINDINGS: Visualized portions of the thyroid are unremarkable. No enlarged mediastinal lymph nodes. Heart size is normal. No pericardial effusion. Thoracic aorta has a normal course and caliber. There is an aberrant right subclavian artery with a retroesophageal course. Pulmonary artery is not enlarged. No pulmonary embolus identified within the main, lobar or segmental pulmonary arteries. Airways are patent. No consolidation or pneumothorax. 5 mm nodule in the right upper lobe series 4 image 31. No pleural effusion or thickening. Visualized upper abdomen is unremarkable. No suspicious osseous lesions or acute fractures. IMPRESSION: 1. No pulmonary embolus identified within the main, lobar or segmental pulmonary arteries. 2. A 5 mm nodule in the right upper lobe. In a low-risk patient no further follow-up imaging is recommended. In a high-risk patient optional one-year follow-up CT can performed. Exposure: One or more of the following in the visualized dose reduction techniques were utilized for this examination: 1. Automated exposure control 2. Adjustment of the MA and/or KV according to patient size 3. Use of iterative of reconstructive technique Electronically signed by: Sarah Reynoso MD (10/25/2019 5:23 PM) [id number]
[2019-10-25 17:27] LABS: MONONUCLEOSIS PATIENT NEGATIVE (NEGATIVE)
[2019-10-25] MEDS ORDERED: CODE10LI PO (17:48)
[2019-10-25] MEDS ORDERED: BENZ100C PO (17:48)
== END 2019-10-25 17:50 | disposition home or self-care (01) ==
LOC: ER 15:21
DX: J06.9 Acute upper respiratory infection, unspecified (principal); E87.2 Acidosis; G43.909 Migraine, unspecified, not intractable, without status migrainosus; E11.9 Type 2 diabetes mellitus without complications; E78.00 Pure hypercholesterolemia, unspecified; I10 Essential (primary) hypertension; F17.210 Nicotine dependence, cigarettes, uncomplicated
CPT/HCPCS: 36415; 71275; 80053; 80307; 81001; 82553; 83605; 83880; 84484; 85025; 86308; 87070; 87804; 87880; 93005; 96374; 96375; 99285; G0480; J1100; J1200; J1885; J2765; J7030

== ENCOUNTER 2019-11-18 18:45 | Observation (INO) | payer BC ==
[~2019-11-18] VITALS: Ht 165.1 cm; Wt 98.0 kg
[~2019-11-18 18:45] MED LIST changes: +BENZ100C PO; +CODE10LI PO; +EMPA10TA PO
--- NOTE | 2019-11-18 18:48 | PHYS DOC ---
Past History Past Medical History: Anxiety, Diabetes, High Cholesterol, Hypertension, Migraines, Other Additional Past Medical Histor: Gastroparesis Past Surgical History: Cholecystectomy Additional Past Surgical Histo: L rotator cuff repair x 3 Smoking: Cigarettes Alcohol Use: None Drug Use: None General Adult HPI: HPI: ... "... I ve been having chest pain.. and this cough now for a month... I ve been having chest pain... constant since last night.. I get so anxious.. ..I don't want to .. I have been exposed to my daughter who had COVID... I ve b een tested several times... I was still negative on 11/06.. I have had chest pain work up before.. the last doctor.. I seen was Madiha... ...I know I am to stop smoking.. .. now I so nervous.. .I am vomiting... and the vomiting give me a head ache.... " Patient is a 49 year old female who presents with above hx and complaints of central chest pain that radiates to her neck. Patient also complaining of a chronic cough for the past month. Has had exposure to her daughter that has COVID. Patient however has been tested several times for COVID and has been negative as of the 11/06. Patient still smoking 2 packs/day. Patient is very anxious. Has a large drink that she drinks and then vomits. Patient has past medical history of anxiety disorder panic attacks, diabetes, hyperlipidemia, chronic bronchitis, chronic migraine, cardiac catheterizations x2.. Patient has a history of cholecystectomy wisdom teeth extraction tubal ligation knee arthroscopic surgeries and uterine ablation and ovarian cyst removal. Patient does continue to smoke. Review of Systems: Review of Systems: Constitutional: Denies fever or chills Eyes: Denies change in visual acuity HENT: Denies nasal congestion or sore throat Respiratory: Complains of cough and shortness of breath Cardiovascular: Chest pain or edema GI: Denies abdominal pain, , bloody stools or diarrhea . Complains of nausea and vomiting : Denies dysuria Musculoskeletal: Denies back pain or joint pain Integument: Denies rash Neurologic: Denies headache, focal weakness or sensory changes Endocrine: Denies polyuria or polydipsia Lymphatic: Denies swollen glands Psychiatric: Denies depression or anxiety Heart Score: HEART Score for Chest Pain: HEART Score for Chest Pain Response (Comments) Value History Slighlty/Non-Suspicious 0 ECG Normal 0 Age >45 - < 65 1 Risk Factors 1 or 2 Risk Factors 1 Troponin < Normal Limit 0 Total 2 Risk Factors: Risk Factors: DM, Current or recent (<one month) smoker, HTN, HLP, family histo ry of CAD, obesity. Risk Scores: Score 0 - 3: 2.5% MACE over next 6 weeks - Discharge Home Score 4 - 6: 20.3% MACE over next 6 weeks - Admit for Clinical Observation Score 7 - 10: 72.7% MACE over next 6 weeks - Early Invasive Strategies Family History: Family History: Daughter has tested positive for COVID Current Medications: Current Meds: See nursing for home meds Allergies: Allergies: Allergies Coded Allergies Type Severity Reaction Last Updated Verified No Known Drug Allergies 10/25/19 No Physical Exam: PE: Constitutional: in acute emotional distress, non-toxic appearance. [] HENT: Normocephalic, atraumatic, bilateral external ears normal, oropharynx moist, no oral exudates, nose normal. [] Eyes: PERRLA, EOMI, conjunctiva normal, no discharge. [] Neck: Normal range of motion, no tenderness, supple, no stridor. [] Cardiovascular:Heart rate regular rhythm, no murmur [] Lungs & Thorax: Bilateral breath sounds equal at apex with scattered wheezes throughout auscultation [. Patient is having] episodes of forceful coughing Abdomen: Bowel sounds normal, soft, no tenderness, no masses, no pulsatile masses. Old surgery scars Skin: Warm, dry, no erythema, no rash. [] Back: No tenderness, no CVA tenderness. [] Extremities: No tenderness, no cyanosis, no clubbing, ROM intact, no edema. No cording appreciated. Old surgery scars Neurologic: Alert and oriented X 3, normal motor function, normal sensory function, no focal deficits noted. [] Psychologic: Affect extremely anxious , depressed and tearful EKG: EKG: My interpretation EKG shows a sinus rhythm at 69 bpm. No findings of acute STEMI of contralateral changes. No obvious morphology. [] Radiology/Procedures: Radiology/Procedures: [][address] [address] IMAGING REPORT Signed PATIENT: SOUMYA MUÑOZ ACCOUNT: [id number] : 1970 LOCATION: ER AGE: 49 SEX: F EXAM STATUS: REG ER ORD. PHYSICIAN: SANDRA BORDEN MD REASON: CHEST PAIN PROCEDURE: PORTABLE CHEST 1V AP chest. HISTORY: Chest pain AP view was taken of the chest. Lungs are clear. Heart is normal in size without heart failure. There is no effusion. IMPRESSION: 1. No acute chest disease. Electronically signed by: Sav Segal MD (11/18/2019 7:14 PM) [facility] DICTATED AND SIGNED BY: SAV SEGAL MD DATE: 11/18/191913 CC: SANDRA BORDEN MD; PCP,NO ~ Course & Med Decision Making: Course & Med Decision Making Pertinent Labs and Imaging studies reviewed. (See chart for details) Discussed presentation, testing and tx. plan with Dr. Thornton- Will admit observation status with consult to Cardiology. Dr. Thornton requested to repeat the COVID. Impression: 1. Chest Pain- Atypical, Chest Wall 2.Cough= nonproductive 3. Tobacco Abuse 4. Hx. Exposure to COVID 5. Tobacco Abuse 6. Nausea and Vomiting 7. DM 127 glu 8. Anxiety Disorder* 9. Elevated lactic acid 2.2 [] Dragon Disclaimer: Dragon Disclaimer: This electronic medical record was generated, in whole or in part, using a voice recognition dictation system. Departure Departure: Disposition: 01 HOME/RESIDENCE PRIOR TO ADM Condition: STABLE Referrals: PCP,NO (PCP) Justification of Admission: Justification of Admission: Justification of Admission Dx: Yes Angina: Symp at Rest Dragon Disclaimer This chart was dictated in whole or in part using Voice Recognition software in a busy, high-work load, and often noisy Emergency Department environment. It may contain unintended and wholly unrecognized errors or omissions. Dragon Disclaimer This chart was dictated in whole or in part using Voice Recognition software in a busy, high-work load, and often noisy Emergency Department environment. It may contain unintended and wholly unrecognized errors or omissions. SANDRA BORDEN MD Nov 18, 2019 18:48
[2019-11-18] MEDS ORDERED: ASPIRIN CHEWABLE 81 MG TABLET. PO ONE ×2 (19:00→21:30)
--- NOTE | 2019-11-18 19:17 | RAD ---
AP chest. HISTORY: Chest pain AP view was taken of the chest. Lungs are clear. Heart is normal in size without heart failure. There is no effusion. IMPRESSION: 1. No acute chest disease. Electronically signed by: Sav Segal MD (11/18/2019 7:14 PM) [facility]
[2019-11-18] MEDS: IV RINGERS SOLUTION,LACTATED 1,000 ML IV SCH ×2 (19:35→21:23)
[2019-11-18 19:46] LABS: BASO # 0.3 x10^3/uL (0.0-0.2); BASO % 3 % (0-3); EOS % 0 % (0-3); HEMATOCRIT 42.7 % (36.0-47.0); HEMOGLOBIN 14.6 g/dL (12.0-15.5); LYMPH % 46 % (24-48); MEAN CORPUSCULAR HEMOGLOBIN 32 pg (25-35); MEAN CORPUSCULAR HGB CONC 34 g/dL (31-37); MEAN CORPUSCULAR VOLUME 94 fL (79-100); MONO # 0.5 x10^3/uL (0.0-1.1); MONO % 6 % (0-9); NEUT # 3.9 x10^3uL (1.8-7.7); NEUT % 45 % (31-73); PLATELET COUNT 346 x10^3/uL (140-400); RED BLOOD COUNT 4.54 x10^6/uL (3.50-5.40); RED CELL DISTRIBUTION WIDTH 13.7 % (11.5-14.5); WHITE BLOOD COUNT 8.7 x10^3/uL (4.0-11.0)
[2019-11-18 19:53] LABS: CALCIUM 9.9 mg/dL (8.5-10.1); GFR 58.7; POTASSIUM 3.9 mmol/L (3.5-5.1)
[2019-11-18 20:01] LABS: PLT ESTIMATE ADEQUATE (ADEQUATE)
[2019-11-18 20:03] LABS: C REACTIVE PROTEIN 1.1 mg/L (0-3.3); DIRECT BILIRUBIN 0.1 mg/dL (0.0-0.2); MAGNESIUM 1.9 mg/dL (1.8-2.4); TOTAL BILIRUBIN 0.2 mg/dL (0.2-1.0); TOTAL PROTEIN 7.6 g/dL (6.4-8.2)
--- NOTE | 2019-11-18 20:20 | EKG ---
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
[2019-11-18 20:35] LABS: AMPHETAMINE/METHAMPHETAMINE NEG (NEG); BARBITURATES NEG (NEG); BENZODIAZEPINES NEG (NEG); CANNABINOIDS NEG (NEG); COCAINE NEG (NEG); METHADONE NEG (NEG); OPIATES NEG (NEG); PHENCYCLIDINE NEG (NEG)
[2019-11-18 20:47] LABS: BILIRUBIN,URINE NEG (NEG); CLARITY,URINE CLEAR; COLOR,URINE YELLOW; GLUCOSE,URINE NEG (NEG); NITRITE,URINE NEG (NEG); UROBILINOGEN,URINE 0.2 mg/dL (0.2 mg/dL)
[2019-11-18 20:48] LABS: BACTERIA,URINE 0 /HPF (0-FEW); RBC,URINE OCC /HPF (0-2); SQUAMOUS EPITHELIAL CELL,UR OCC /LPF; WBC,URINE OCC /HPF (0-4)
[2019-11-18] MEDS ORDERED: ONDANSETRON PF 4 MG/2 ML VIAL. IVP ONE (21:30)
[2019-11-18] MEDS ORDERED: ONDANSETRON PF 4 MG/2 ML VIAL. IVP PRN (21:30)
[2019-11-18] MEDS ORDERED: NICOTINE 21MG PATCH. TD ONE (21:30)
[2019-11-18] MEDS ORDERED: ACETAMINOPHEN 325 MG TABLET PO PRN (21:30)
[2019-11-18] MEDS ORDERED: IV RINGERS SOLUTION,LACTATED 1,000 ML IV ONE (22:30)
[2019-11-18 23:00] VITALS: BP 135/85
--- NOTE | 2019-11-18 23:05 | NUR ---
Pt admitted from ER to room 121 via rney, accompanied by EMS and nursing staff. Pt ambulated from gurney to bed independently, steady gait noted. Pt A&Ox3, slightly anxious about being in the Covid unit. Pt here for c/o chest pain, cough x4 weeks and Covid exposure. Pt reports that her daughter tested positive mid-October and that she has "been tested 3-4 times including a IGG blood draw that have all been negative." Reports chest pressure below right breast but improved since Ativan in ER. Past medical history and home medications reviewed with pt. Initial troponin and EKG negative. Will consult [facility] cardiology in AM, has seen Dr Cleary in past. SCDs for VTE. Pt was given written information regarding hospital policies, unit procedures and contact persons. Pt's daughter brought up [employer] and belongings for pt. Valuables were checked and logged. Left in room with patient. Covid test and repeat Lactic done on arrival to unit. Call light in reach.
[2019-11-19] MEDS ORDERED: LYSI500T8 PO (01:44)
[2019-11-19] MEDS ORDERED: ERYT250T89 PO (01:44)
[2019-11-19] MEDS ORDERED: METO25TA4 PO (01:44)
[2019-11-19] MEDS ORDERED: POTA99TA3 PO (01:44)
[2019-11-19] MEDS ORDERED: PANT40TA5 PO (01:44)
[2019-11-19] MEDS ORDERED: DOCU-109 PO (01:44)
[2019-11-19] MEDS ORDERED: VENL225T PO (01:44)
[2019-11-19 06:10] VITALS: BP 127/82
[2019-11-19 06:24] LABS: BASO % 0 % (0-3); EOS % 0 % (0-3); HEMOGLOBIN 12.9 g/dL (12.0-15.5); LYMPH # 3.1 x10^3/uL (1.0-4.8); LYMPH % 45 % (24-48); MEAN CORPUSCULAR HEMOGLOBIN 33 pg (25-35); MEAN CORPUSCULAR HGB CONC 33 g/dL (31-37); MEAN CORPUSCULAR VOLUME 98 fL (79-100); MONO # 0.5 x10^3/uL (0.0-1.1); MONO % 7 % (0-9); NEUT # 3.2 x10^3uL (1.8-7.7); NEUT % 47 % (31-73); PLATELET COUNT 279 x10^3/uL (140-400); RED BLOOD COUNT 3.96 x10^6/uL (3.50-5.40); RED CELL DISTRIBUTION WIDTH 14.1 % (11.5-14.5); WHITE BLOOD COUNT 6.8 x10^3/uL (4.0-11.0)
[2019-11-19 06:32] LABS: CALCIUM 9.1 mg/dL (8.5-10.1); CREATININE 1.1 mg/dL (0.6-1.0); GFR 52.6; POTASSIUM 3.8 mmol/L (3.5-5.1)
[2019-11-19] MEDS ORDERED: IPRATRPIUM/ALBUTEROL 0.5/2.5MG 3 ML NEBU. NEB SCH (08:00)
--- NOTE | 2019-11-19 08:39 | PDOC2 ---
MILAGROS BRIONES RECOVERY ANALYST 11/19/19 0839: CARDIAC CONSULT DATE OF CONSULT Date Of Consult DATE: 11/19/19 TIME: 08:34 REASON FOR CONSULT Reason for Consult CP REFERRING PHYSICIAN Referring Physician Dr. Mckeon SOURCE Source: Chart review, Patient HPI History of Present Illness This is a 49 yo female who presented secondary to chest pain and cough. Is anxious as she has been exposed to COVID by her daughter. Patient reports she woke up with stabbing pain in her central chest the night before last. Had some aching pain in her left arm. Pain was constant and progressed yesterday so she came to the Ed for further evaluation and treatment. No associated dizziness, diaphoresis, palpitations, or SOA. PAST MEDICAL HISTORY Past Medical History Cardiovascular: HTN, Hyperlipidemia Pulmonary: Asthma CENTRAL NERVOUS SYSTEM: Other (No pertinent history) GI: GERD Heme/Onc: No pertinent hx Hepatobiliary: Cholelithiasis Psych: Anxiety Endocrine: Diabetes (2) Endocrine: Diabetes PAST SURGICAL HISTORY Past Surgical History: Cholecystectomy, Tubal Ligation FAMILY HISTORY Family History: Diabetes SOCIAL HISTORY Smoke: <1 pack per day ALCOHOL: none Drugs: None Lives: with Family CURRENT MEDICATIONS Current Medications Current Medications Aspirin (Aspirin Chewable) 324 mg 1X ONCE PO Last administered on 11/18/19at 19:33; Start 11/18/19 at 19:00; Stop 11/18/19 at 19:01; Status DC Lactated Ringer's 1,000 ml @ 100 mls/hr Q10H IV Last administered on 11/18/19at 21:23; Start 11/18/19 at 18:48; Stop 11/19/19 at 04:47; Status DC Ondansetron HCl (Zofran) 8 mg 1X ONCE IVP Last administered on 11/18/19at 21:27; Start 11/18/19 at 21:30; Stop 11/18/19 at 21:31; Status DC Lorazepam (Ativan Inj) 2 mg 1X ONCE IVP Last administered on 11/18/19at 21:28; Start 11/18/19 at 21:30; Stop 11/18/19 at 21:31; Status DC Ondansetron HCl (Zofran) 4 mg PRN Q4HRS PRN IVP NAUSEA/VOMITING; Start 11/18/19 at 21:30; Stop 11/19/19 at 21:29 Acetaminophen (Tylenol) 650 mg PRN Q4HRS PRN PO FEVER > 100.3'F Last administered on 11/19/19at 03:00; Start 11/18/19 at 21:30; Stop 11/19/19 at 21:29 Albuterol/ Ipratropium (Duoneb) 3 ml RTQID NEB ; Start 11/19/19 at 08:00; Stop 11/18/19 at 22:56; Status DC Nicotine (Nicoderm Cq 21mg) 1 patch 1X ONCE TD Last administered on 11/18/19at 22:56; Start 11/18/19 at 21:30; Stop 11/18/19 at 21:37; Status DC Aspirin (Aspirin Chewable) 81 mg 1X ONCE PO ; Start 11/18/19 at 21:30; Stop 11/18/19 at 21:37; Status DC Lactated Ringer's 1,000 ml @ 2,000 mls/hr 1X ONCE IV Last administered on 11/18/19at 22:56; Start 11/18/19 at 22:30; Stop 11/18/19 at 22:59; Status DC Active Scripts Active Reported Potassium Gluconate 99 Mg Tablet 99 Mg PO DAILY LAST DOSE GIVEN: DATE: TIME: NEXT DOSE DUE: DATE: TIME: L-Lysine (Lysine) 500 Mg Tablet 500 Mg PO DAILY LAST DOSE GIVEN: DATE: TIME: NEXT DOSE DUE: DATE: TIME: Venlafaxine Hcl Er (Venlafaxine Hcl) 225 Mg Tab.er.24 225 Mg PO DAILY LAST DOSE GIVEN: DATE: TIME: NEXT DOSE DUE: DATE: TIME: Colace (Docusate Sodium) 100 Mg Capsule 300 Mg PO DAILY LAST DOSE GIVEN: DATE: TIME: NEXT DOSE DUE: DATE: TIME: Erythromycin (Erythromycin Base) 250 Mg Tablet.dr 250 Mg PO BID LAST DOSE GIVEN: DATE: TIME: NEXT DOSE DUE: DATE: TIME: Metoprolol Tartrate 25 Mg Tablet 25 Mg PO BID LAST DOSE GIVEN: DATE: TIME: NEXT DOSE DUE: DATE: TIME: Pantoprazole Sodium 40 Mg Tablet.dr 40 Mg PO BID LAST DOSE GIVEN: DATE: TIME: NEXT DOSE DUE: DATE: TIME: Jardiance (Empagliflozin) 10 Mg Tablet 10 Mg PO DAILY LAST DOSE GIVEN: DATE: TIME: NEXT DOSE DUE: DATE: TIME: Wellbutrin Sr (Bupropion Hcl) 150 Mg Tablet.er 150 Mg PO BID LAST DOSE GIVEN: DATE: TIME: NEXT DOSE DUE: DATE: TIME: ALLERGIES Allergies: Coded Allergies: No Known Drug Allergies (Unverified , 10/25/19) ROS Review of Systems 14 point ROS conducted with pertinent positives noted above in HPI PHYSICAL EXAM Physical Exam General: Alert, Oriented X3, Cooperative, No acute distress HEENT: Atraumatic, Mucous membr. moist/pink Lungs: Clear to auscultation, Normal air movement Heart: Regular rate (SR), Normal S1, Normal S2, Other (2/6 systolic murmur to LLS border) Abdomen: Soft, No tenderness Extremities: No cyanosis, No edema Skin: No breakdown, No significant lesion Neuro: Normal speech, Sensation intact Psych/Mental Status: Mental status NL, Other (anxious) MUSCULOSKELETAL: Osteoarthritic changes both hands VITALS Vital Signs Vital Signs Date Time Temp Pulse Resp B/P (MAP) Pulse Ox O2 Delivery O2 Flow Rate FiO2 11/19/19 06:10 97.9 68 18 127/82 (97) 98 Room Air LABS LABS Laboratory Tests Test 11/18/19 19:25 11/18/19 19:40 11/18/19 23:25 11/19/19 05:45 White Blood Count 8.7 x10^3/uL (4.0-11.0) 6.8 x10^3/uL (4.0-11.0) Red Blood Count 4.54 x10^6/uL (3.50-5.40) 3.96 x10^6/uL (3.50-5.40) Hemoglobin 14.6 g/dL (12.0-15.5) 12.9 g/dL (12.0-15.5) Hematocrit 42.7 % (36.0-47.0) 39.0 % (36.0-47.0) Mean Corpuscular Volume 94 fL (79-100) 98 fL (79-100) Mean Corpuscular Hemoglobin 32 pg (25-35) 33 pg (25-35) Mean Corpuscular Hemoglobin Concent 34 g/dL (31-37) 33 g/dL (31-37) Red Cell Distribution Width 13.7 % (11.5-14.5) 14.1 % (11.5-14.5) Platelet Count 346 x10^3/uL (140-400) 279 x10^3/uL (140-400) Neutrophils (%) (Auto) 45 % (31-73) 47 % (31-73) Lymphocytes (%) (Auto) 46 % (24-48) 45 % (24-48) Monocytes (%) (Auto) 6 % (0-9) 7 % (0-9) Eosinophils (%) (Auto) 0 % (0-3) 0 % (0-3) Basophils (%) (Auto) 3 % (0-3) 0 % (0-3) Neutrophils # (Auto) 3.9 x10^3uL (1.8-7.7) 3.2 x10^3uL (1.8-7.7) Lymphocytes # (Auto) 4.0 x10^3/uL (1.0-4.8) 3.1 x10^3/uL (1.0-4.8) Monocytes # (Auto) 0.5 x10^3/uL (0.0-1.1) 0.5 x10^3/uL (0.0-1.1) Eosinophils # (Auto) 0.0 x10^3/uL (0.0-0.7) 0.0 x10^3/uL (0.0-0.7) Basophils # (Auto) 0.3 x10^3/uL (0.0-0.2) 0.0 x10^3/uL (0.0-0.2) Platelet Estimate Adequate (ADEQUATE) Large Platelets Few Giant Platelets Occ Prothrombin Time 9.9 SEC (9.4-11.4) Prothromb Time International Ratio 1.0 (0.9-1.1) Activated Partial Thromboplast Time 23 SEC (23-33) D-Dimer (Ghada) 0.37 mg/L (0.00-0.50) Sodium Level 138 mmol/L (136-145) 140 mmol/L (136-145) Potassium Level 3.9 mmol/L (3.5-5.1) 3.8 mmol/L (3.5-5.1) Chloride Level 103 mmol/L (98-107) 106 mmol/L (98-107) Carbon Dioxide Level 21 mmol/L (21-32) 27 mmol/L (21-32) Anion Gap 14 (6-14) 7 (6-14) Blood Urea Nitrogen 20 mg/dL (7-20) 17 mg/dL (7-20) Creatinine 1.0 mg/dL (0.6-1.0) 1.1 mg/dL (0.6-1.0) Estimated GFR (Cockcroft-Gault) 58.7 52.6 Glucose Level 127 mg/dL (70-99) 222 mg/dL (70-99) Lactic Acid Level 2.2 mmol/L (0.4-2.0) 1.0 mmol/L (0.4-2.0) Calcium Level 9.9 mg/dL (8.5-10.1) 9.1 mg/dL (8.5-10.1) Magnesium Level 1.9 mg/dL (1.8-2.4) Total Bilirubin 0.2 mg/dL (0.2-1.0) Direct Bilirubin 0.1 mg/dL (0.0-0.2) Aspartate Amino Transf (AST/SGOT) 15 U/L (15-37) Alanine Aminotransferase (ALT/SGPT) 28 U/L (14-59) Alkaline Phosphatase 78 U/L (46-116) Creatine Kinase 47 U/L (26-192) Troponin I Quantitative < 0.017 ng/mL (0-0.055) < 0.017 ng/mL (0-0.055) < 0.017 ng/mL (0-0.055) C-Reactive Protein 1.1 mg/L (0-3.3) YV-Hkc-J-Type Natriuretic Peptide 30 pg/mL (0-124) Total Protein 7.6 g/dL (6.4-8.2) Albumin 4.0 g/dL (3.4-5.0) Lipase 152 U/L (73-393) Urine Collection Type Unknown Urine Color Yellow Urine Clarity Clear Urine pH 6.5 Urine Specific [place] 1.020 Urine Protein Neg (NEG-TRACE) Urine Glucose (UA) Neg mg/dL (NEG) Urine Ketones (Stick) Neg mg/dL (NEG) Urine Blood Trace (NEG) Urine Nitrite Neg (NEG) Urine Bilirubin Neg (NEG) Urine Urobilinogen Dipstick 0.2 mg/dL (0.2 mg/dL) Urine Leukocyte Esterase Trace (NEG) Urine RBC Occ /HPF (0-2) Urine WBC Occ /HPF (0-4) Urine Squamous Epithelial Cells Occ /LPF Urine Bacteria 0 /HPF (0-FEW) Urine Opiates Screen Neg (NEG) Urine Methadone Screen Neg (NEG) Urine Barbiturates Neg (NEG) Urine Phencyclidine Screen Neg (NEG) Urine Amphetamine/Methamphetamine Neg (NEG) Urine Benzodiazepines Screen Neg (NEG) Urine Cocaine Screen Neg (NEG) Urine Cannabinoids Screen Neg (NEG) Urine Ethyl Alcohol Neg (NEG) ECHOCARDIOGRAM Echocardiogram <Conclusion> The left ventricular systolic function is normal. The Ejection Fraction is 55-60%. There is normal LV segmental wall motion. Trace to mild mitral regurgitation. Trace tricuspid regurgitation. The PA pressure was estimated at 26 mmHg. There is no evidence of significant pericardial effusion. DATE: 02/02/18 1541 STRESS TEST Stress Test Conclusion 1. No EKG evidence of stress-induced ischemia. 2. Nuclear imaging stress scans were normal. No evidence of ischemia or infarct. 3. Normal left ventricular systolic function with an ejection fraction of greater than 70%. 4. Low risk Lexiscan nuclear stress test. DATE: 02/07/18 1420 HEART CATH Heart Cath CORONARY ANGIOGRAPHY: LM is a large caliber vessel with normal angiographic appearance. LAD is a moderate caliber vessel with a small focal mid myocardial bridge with possible minimal spasm. Otherwise, the vessel has normal angiographic appearan ce. Post-NTG, the mid segment appeared to demonstrate less degree of spasm. D1 is a small caliber vessel with normal angiographic appearance. LCx is a moderate caliber vessel with normal angiogarphic appearance. OM1 is a moderate sized vessel with normal angiographic appearance. RCA is a moderate caliber dominant vessel with normal angiographic appearance. RPDA is a small to moderate sized vessel with normal angiographic appearance. Conclusion 1. Mildly elevated left sided filling pressures. 2. Normal angiographic appearance of the coronary arteries. Recommendations Aggressive Medical Therapy DATE: 07/27/15 1557 ASSESSMENT/PLAN Assessment/Plan 1. Chest pain, atypical. troponin series normal, AMI ruled out. 2. Known small focal LAD myocardial bridging: noted in [facility] 07/2015 with vasopasm. Has been out of Imdur for a couple of months. 3. Hypertension; controlled 4. Hyperlipidemia 5. Diabetes, II 6. Tobaccoism 7. Anxiety Recommendations Cath 2016 with obstructive disease and stress test 2018 without evidence of ischemia. Doubt ACS. Will obtain echo to assess LV systolic function Lipids Resume Imdur, metoprolol Encouraged smoking cessation Await COVID, although suspicion is low. Supportive care If echo WNL, may discharge from a CV standpoint and f/u in our office with Dr. Cleary. MORIS CLEARY MD 11/20/19 2257: Attending Co-Sign Attending Co-Sign Late entry for 11/19/2019. The patient was seen and interviewed as well as examined at the bedside. The chart was reviewed. The case was discussed. Agree with the plan of care. MILAGROS BRIONES APRN Nov 19, 2019 08:39 MORIS CLEARY MD Nov 20, 2019 22:57
[2019-11-19] MEDS ORDERED: ISOSORBIDE MONONITRATE ER 30 MG TAB.ER.24H PO SCH (09:55)
[2019-11-19 11:00] VITALS: BP 133/80
--- NOTE | 2019-11-19 14:42 | CARD ---
MR#: [id number] Date of Study: 11/19/2019 Ordering Physician: MILAGROS BRIONES, Referring Physician: MILAGROS BRIONES, Tech: Gabrielle Barroso ROSAMARIA APPROVED REPORT EXAM: Two-dimensional and M-mode echocardiogram with Doppler and color Doppler. Other Information Quality : Good INDICATION Dyspnea Chest Pain 2D DIMENSIONS RVDd3.0 (2.9-3.5cm)Left Atrium(2D)3.4 (1.6-4.0cm) IVSd0.7 (0.7-1.1cm)Aortic Root(2D)3.1 (2.0-3.7cm) LVDd4.4 (3.9-5.9cm)LVOT Diameter2.1 (1.8-2.4cm) PWd0.9 (0.7-1.1cm)LVDs2.9 (2.5-4.0cm) Aortic Valve AoV Peak Jorge.146.0cm/sAoV VTI26.0cm AO Peak GR.9.0mmHgAO Mean GR.4mmHg BETTE (VTI)2.60cm2 LEFT VENTRICLE The left ventricle is normal size. There is normal left ventricular wall thickness. The left ventricu lar systolic function is normal and the ejection fraction is within normal range. The Ejection Fracti on is 60-65%. There is normal LV segmental wall motion. The left ventricular diastolic function and f illing is normal for age. RIGHT VENTRICLE The right ventricle is normal size. The right ventricular systolic function is normal. ATRIA The left atrium size is normal. The right atrium size is normal. The interatrial septum is intact wit h no evidence for an atrial septal defect or patent foramen ovale as noted on 2-D or Doppler imaging. AORTIC VALVE The aortic valve is not well visualized but appears to be functioning normally by Doppler interrogati on. Doppler and Color Flow revealed no significant aortic regurgitation. There is no significant aort ic valvular stenosis. MITRAL VALVE The mitral valve is normal in structure and function. There is no evidence of mitral valve prolapse. There is no mitral valve stenosis. Doppler and Color-flow revealed trace mitral regurgitation. TRICUSPID VALVE The tricuspid valve is normal in structure and function. Doppler and Color Flow revealed no tricuspid valve regurgitation noted. There is no tricuspid valve stenosis. PULMONIC VALVE The pulmonic valve is not well visualized. Doppler and Color Flow revealed no pulmonic valvular regur gitation. There is no pulmonic valvular stenosis. GREAT VESSELS The aortic root is normal in size. The ascending aorta is normal in size. The IVC is normal in size a nd collapses >50% with inspiration. PERICARDIAL EFFUSION There is no evidence of significant pericardial effusion. Critical Notification Critical Value: No <Conclusion> The left ventricular systolic function is normal and the ejection fraction is within normal range. Th e Ejection Fraction is 60-65%. There is normal LV segmental wall motion. Signed by : Santiago Cleary, Electronically Approved : 11/19/2019 14:41:57
[2019-11-19 15:00] VITALS: BP 118/78
--- NOTE | 2019-11-19 16:15 | HP ---
ADMIT DATE: 11/18/2019 HISTORY OF PRESENT ILLNESS: The patient is a 49-year-old female patient who presented to the Emergency Room of [facility] complaining that she is having chest pain, cough now for a month and chest pain constant since last night. She gets so anxious and she has been exposed apparently to her daughter who had COVID; however, she has been tested numerous times, one on 10/29/2019 and another one 11/07/2019. She was evaluated apparently on 10/27/2019 at [facility] Emergency Room and again on 10/28 at [facility] and again no abnormality was detected. She was admitted to [facility]. Was admitted to do 2 more sets of cardiac enzymes and to consult the diesel automotive technician, probably telemetry bed and we did consult the diesel automotive technician to assist with evaluation. She was swabbed and the COVID test was sent, the results of which is still pending at the time of this dictation. PAST MEDICAL HISTORY: Significant for anxiety, hypertension, hyperlipidemia, bronchial asthma, gastroesophageal reflux disease and diabetic gastroparesis. She has a history also of Helicobacter pylori gastritis. She has also anxiety and type 2 diabetes mellitus. PAST SURGICAL HISTORY: Significant for cholecystectomy, tubal ligation. FAMILY HISTORY: Positive for diabetes. SOCIAL HISTORY: She lives with her daughter. She smokes a pack a day, does not drink alcohol or use any recreational drugs. ALLERGIES: She has no known drug allergies. MEDICATIONS: She is currently on following medications: She is on erythromycin 250 mg twice a day for diabetic gastroparesis, metoprolol tartrate 25 mg p.o. b.i.d., Wellbutrin-SR 150 mg twice a day, venlafaxine 225 mg daily, potassium gluconate 99 mg p.o. daily, lysine 500 mg daily, Colace 300 mg daily, Protonix 40 mg once a day and Jardiance 10 mg p.o. daily. REVIEW OF SYSTEMS: As per history of present illness. PHYSICAL EXAMINATION: GENERAL: On arrival to the Emergency Room, she was initially somewhat tachypneic, but there was no pallor, jaundice, cyanosis or thyromegaly. No jugular venous distention or limb edema. VITAL SIGNS: Her heart rate was 77, blood pressure was 157/78, temperature was 98.8, respiratory rate 24 and oxygen saturation was 100%. HEAD, EYES, EARS, NOSE AND THROAT: Showed normocephalic, atraumatic. NECK: Supple. HEART: Showed normal first and second heart sounds with no gallop, rub or murmur. CHEST: Clear to auscultation. No crepitation or rhonchi. ABDOMEN: Distended, soft, nontender. No guarding or rigidity. No organomegaly. All hernial orifice intact. Bowel sounds normal. NEUROLOGIC: She was extremely anxious, but there is no obvious lateralizing sign. All her cranial nerves intact. EXTREMITIES: She moves extremities without difficulty. LABORATORY DATA: On admission showed a white cell count of 8700, hemoglobin 14.6, hematocrit 42.7, MCV 94 and platelet count of 346,000 with normal manual differential. Her chemistry showed serum sodium 138, potassium 3.9, chloride 103, bicarbonate 21, anion gap of 14, BUN 20, creatinine 1, estimated GFR was 58 mL per minute. Her glucose was 127. Lactic acid was 2.2, calcium was 9.9, magnesium was 1.9. Total bilirubin, AST, ALT, alkaline phosphatase were normal. CK was 47. First set of cardiac enzymes showed troponin to be less than 0.017. Her C-reactive protein was 1.1. Beta natriuretic peptide was 30. Total protein was 7.6, albumin was 4 and her serum lipase was 52. Her prothrombin time was 9.9, INR 1, aPTT was 23 and D-dimer was 0.37. Urinalysis was essentially unremarkable. Her urine was yellow, clear with a pH of 6.5, specific gravity of 1.020. The urine was negative for protein, glucose, ketones with trace of blood, negative for nitrite and leukocyte esterase. There are no rbc's, no wbc's, and no bacteria. Her toxic screen was essentially negative. Her chest x-ray showed that the lungs are clear, heart is normal in size without heart failure. There is no effusion. The patient was admitted to do 2 more sets of cardiac enzyme and to consult the diesel automotive technician. She was continued on all her medication and as she did not take her Imdur for almost 2 months, she was restarted on that. In summary, this is a 49-year-old female patient who was admitted with vague chest pain. Her first set of cardiac enzymes showed troponin was normal. 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 She has hypertension, hyperlipidemia, type 2 diabetes, tobaccoism and severe anxiety. SILVANO MOORE MD DR: MOE/mario JOB#: [id number] / [id number]
[2019-11-19 16:51] LABS: THYROID STIM HORMONE (TSH) 2.238 uIU/mL (0.358-3.740)
--- NOTE | 2019-11-19 17:14 | DS ---
DATE OF DISCHARGE: 11/19/2019 DISCHARGE/TRANSFER SUMMARY HOSPITAL COURSE: The patient presented with chest pain and cough. She is extremely anxious that she has been exposed to COVID by her daughter. She has been tested multiple times, at least they have 2 documented testing for COVID that were negative, was on 10/29/2019 and one on the . She denied any dizziness or lightheadedness. Denied any palpitation, diaphoresis or shortness of air. Denied any nausea or vomiting. Her pain is stabbing pain in her central chest the night before last. She has also some aching in her left arm. She has had 3 sets of cardiac enzymes that ruled out myocardial infarction, all the troponins were less than 0.017. Her EKG showed that she was in sinus rhythm with a heart rate of 69 beats per minute, no finding of acute ST segment elevation myocardial infarction. She has had also an echocardiogram done, which basically showed that her left ventricular systolic function is normal, ejection fraction is within normal range, the ejection fraction was 60-65%. There is normal left ventricular segmental wall motion. I have explained all the findings to her in detail including the fact that her D-dimer and C-reactive protein are well within normal limits and that would be elevated in any disease, would it be inflammatory, infectious or malignancy. She is extremely anxious, agitated, and claiming that all her symptoms probably are related to her Helicobacter pylori infection and/or diabetic gastroparesis, although she has not had any complaint of any bloating, abdominal pain, nausea or vomiting; therefore, the patient was transferred to [facility] to consult the Gastroenterology and probably a psychiatrist. When I saw her this afternoon, she was extremely anxious, agitated and claiming that we are not listening to her and not finding her problems, although her symptoms that she is coming with are incongruent with what she thinks is causing her symptoms. In any case, she looked well and was clearly in no apparent respiratory distress. No pallor, jaundice, cyanosis or thyromegaly. No jugular venous distention or limb edema. PHYSICAL EXAMINATION: VITAL SIGNS: Her heart rate was 79, blood pressure was 133/80, temperature was 96.9, respiratory rate was 18, and oxygen saturation was 100%. HEAD, EYES, EARS, NOSE AND THROAT: Showed normocephalic, atraumatic. NECK: Supple. HEART: Showed normal first and second sounds. No gallop or murmur. CHEST: Clear to auscultation. No crepitation or rhonchi. ABDOMEN: Distended, soft, nontender. NEUROLOGIC: She is extremely anxious and agitated, but otherwise all her cranial nerves are intact. EXTREMITIES: She moves extremities without difficulty. LABORATORY DATA: Showed a serum sodium of 140, potassium 3.8, chloride 106, bicarbonate 27, anion gap of 7, BUN 17, creatinine 1.1, estimated GFR was 52 mL per minute. Her glucose was 221, calcium was 9.1. As I stated, her CK was only 32. Three sets of cardiac enzymes were normal. Her C-reactive protein and D-dimer were normal. Chest x-ray was normal. Her echocardiogram showed she had normal left ventricular systolic function. DISCHARGE MEDICATIONS: She was transferred to [facility] to continue on isosorbide mononitrate 30 mg once a day, Wellbutrin 150 mg p.o. b.i.d., Colace 300 mg once a day, Jardiance 10 mg daily, erythromycin paste ____ mg twice a day for diabetic gastroparesis. She is on lysine 500 mg daily, metoprolol tartrate 25 mg p.o. b.i.d., Protonix 40 mg twice a day, potassium gluconate 99 mg p.o. daily and venlafaxine 225 mg p.o. daily. FINAL DISCHARGE AND TRANSFER DIAGNOSES: Chest pain, atypical, acute myocardial infarction was ruled out. Her EKG was unremarkable. 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 Has been out of [facility] for a couple of months. She is known to have hypertension, hyperlipidemia, type 2 diabetes, tobaccoism and severe anxiety. We will consult the quick print operator, although her complaint is pain, she is attributing that to diabetic gastroparesis and Helicobacter pylori. I would also consult Dr. Regan, the psychiatrist, to assist with her management. SILVANO MOORE MD DR: MOE/mario JOB#: [id number] / [id number]
--- NOTE | 2019-11-19 18:21 | NUR ---
PATIENT HAS COMPLAINED OF CHEST TIGHTNESS AND FATIGUE ALL SHIFT. PATIENT STATED SHE HAS FELT THIS WAY FOR THE LAST 4-5 WEEKS. PATIENT STATES THERE IS SOMETHING WRONG WITH HER AND WE NEED TO FIND OUT WHAT IS WRONG. DR MOORE TOLD THE PATIENT THAT ALL OF HER LABS AND DIAGNOSTICS WERE WITHIN NORMAL LIMITS. PATIENT INSISTED THAT THERE IS SOMETHING WRONG WITH HER AND WANTED TO BE TRANSFERRED TO [facility] FOR SPECIALIST CONSULTS AND ADVANCED DIAGNOSTICS. DR MOORE AGREED TO TRANSFER PATIENT TO [facility]. AWAITING A ROOM NUMBER FROM [facility] AT THIS TIME.
--- NOTE | 2019-11-19 19:44 | NUR ---
PT picked up for transfer to [facility] via ambulance. PT in stable condition on transfer. PT able to walk to [facility]. PT with all belongings. PT without IV on transfer, unable to re-establish prior to transfer. Report given to EMS. Report called to [facility] by previous RNKaren.
[2019-11-19] MEDS ORDERED: METOPROLOL TART IMMED RELEASE 25 MG TABLET PO SCH (21:00)
== END 2019-11-19 19:47 | disposition short-term general hospital (02) ==
LOC: ER 18:45 → 1 SOUTH 20:20
PROVIDERS: ADMIT Internal Medicine; ATTEND Internal Medicine
DX: R07.89 Other chest pain (principal); Z20.828 Contact with and (suspected) exposure to other viral communicable diseases; I10 Essential (primary) hypertension; E78.5 Hyperlipidemia, unspecified; J45.909 Unspecified asthma, uncomplicated; R11.2 Nausea with vomiting, unspecified; E11.43 Type 2 diabetes mellitus with diabetic autonomic (poly)neuropathy; K31.84 Gastroparesis; F17.210 Nicotine dependence, cigarettes, uncomplicated; E78.00 Pure hypercholesterolemia, unspecified; Q24.5 Malformation of coronary vessels; F41.9 Anxiety disorder, unspecified; G43.909 Migraine, unspecified, not intractable, without status migrainosus; Z79.899 Other long term (current) drug therapy; Z79.82 Long term (current) use of aspirin
CPT/HCPCS: 36415; 71045; 80048; 80061; 80076; 80307; 81001; 82550; 83605; 83690; 83735; 83880; 84443; 84484; 85025; 85379; 85610; 85730; 86140; 87040; 87086; 93005; 93306; 96361; 96374; 96375; 99285; G0378; G0379; J2060; J2405; J7120; U0003

== ENCOUNTER → 2020-01-29 | Outpatient (CLI) | payer BC ==
[~2020-01-29] MED LIST changes: +DOCU-109 PO; +ERYT250T89 PO; +IOHEXOL 240 MG/ML 50ML VIAL. ONE; +IOHEXOL 240 MG/ML 50ML VIAL. PO ONE; +IOHEXOL 300 MG/ML 75 ML VIAL. IV ONE; +LYSI500T8 PO; +METO25TA4 PO; +PANT40TA6 PO; +POTA99TA3 PO; +VENL225T PO
[2020-01-29 10:44] LABS: CREATININE 0.8 mg/dL (0.6-1.0); GFR 75.9
--- NOTE | 2020-01-29 11:31 | RAD ---
CT abdomen and pelvis with contrast History: Abdominal pain Technique: After the administration of intravenous contrast, CT imaging was performed of the abdomen and pelvis. No oral contrast was given. Multiplanar images are reviewed. Exposure: One or more of the following individualized dose reduction techniques were utilized for this examination: 1. Automated exposure control 2. Adjustment of the mA and/or kV according to patient size 3. Use of iterative reconstruction technique. Comparison: October 31, 2014 Findings: There is no significant abnormality of the visualized lung bases. There is no significant abnormality of the liver, spleen, pancreas, adrenal glands. Both kidneys enhance. There is similar left renal pelvocaliectasis. There has been interval cholecystectomy, no significant fluid collection in the gallbladder fossa. The colon is not opacified with oral contrast during exam. There is no significant inflammatory type change about the bowel. There is no free fluid or free air. There is appearance of degree of wall thickening of the mid to superior ascending colon and proximal transverse colon. Normal caliber appendix is visualized without adjacent inflammatory change. There is a 2 cm hypodense lesion of left adnexa, this measurements suggestive of cyst 16 Hounsfield units. There is multilevel lumbar facet degenerative change. There is mild L5-S1 degenerative disc disease. Impression: 1. Suboptimally evaluated as not well opacified with oral contrast during exam, there may be a degree of wall thickening of the ascending colon to proximal transverse colon as may be seen with segmental colitis in the appropriate clinical setting, no significant inflammatory change about the bowel. 2. There has been cholecystectomy. There is no CT evidence of acute appendicitis. 3. There is likely small left adnexal cyst. Electronically signed by: Bhupendra Haas MD (01/29/2020 11:28 AM) [id number]
== END | disposition home or self-care (01) ==
LOC: CT 09:48
PROVIDERS: ATTEND Internal Medicine Gastroenterology
DX: N28.89 Other specified disorders of kidney and ureter (principal); M47.816 Spondylosis without myelopathy or radiculopathy, lumbar region; M51.37 Other intervertebral disc degeneration, lumbosacral region; Z90.49 Acquired absence of other specified parts of digestive tract
CPT/HCPCS: 36415; 74177; 82565; 84520; Q9966; Q9967

== ENCOUNTER 2020-06-12 18:10 | Emergency (ER) | payer BC, OTHER ==
[~2020-06-12] VITALS: Ht 165.1 cm; Wt 98.0 kg
[~2020-06-12 18:10] MED LIST changes: -IOHEXOL 240 MG/ML 50ML VIAL. ONE; -IOHEXOL 240 MG/ML 50ML VIAL. PO ONE; -IOHEXOL 300 MG/ML 75 ML VIAL. IV ONE
--- NOTE | 2020-06-12 18:54 | PHYS DOC ---
Past History Past Medical History: Anxiety, Diabetes, High Cholesterol, Hypertension, Migraines, Other Additional Past Medical Histor: Gastroparesis Past Surgical History: Cholecystectomy, Tubal ligation Additional Past Surgical Histo: L rotator cuff repair x 3 Smoking: Cigarettes Alcohol Use: None Drug Use: None Adult General Chief Complaint Chief Complaint: CHEST PAIN HPI HPI Patient is a 49-year-old female with a past medical history significant for hypertension, hyperlipidemia, anxiety, depression and migraines who presents with a chief complaint of chest pain. States that the chest pain started yesterday has been intermittent, substernal, burning in nature with no radiation and approximately 5 out of 10. States that currently in the emergency department she is not experiencing this pain and is otherwise asymptomatic. Denies any shortness of breath, dyspnea on exertion, orthopnea, PND or edema. Denies any headache, abdominal pain or distention, nausea, vomiting, diarrhea, dysuria, hematuria or blood in the stool. Denies any recent travel, traumas, illnesses, fevers or known ill contacts, as well as Covid/flu symptoms. States she is otherwise eating and drinking normally. States she has been dealing with this for years and has had several cardiac work-ups with no identifiable cause. States she had a heart cath about 10 years ago that was clean. States she had recent EGDs showing some signs of GERD but no ulcers. States she is taking her PPIs and the rest of her medications as prescribed. Denies any alcohol or drug use, but states she does smoke cigarettes. Review of Systems Review of Systems Review of systems otherwise unremarkable except noted in HPI. Allergies Allergies Allergies Coded Allergies Type Severity Reaction Last Updated Verified No Known Drug Allergies 10/25/19 No Physical Exam Physical Exam Constitutional: Well developed, well nourished, no acute distress, non-toxic appearance. [] HENT: Normocephalic, atraumatic, oropharynx moist, no oral exudates, Eyes: PERRLA, EOMI, conjunctiva normal, no discharge. [] Neck: Normal range of motion, no tenderness, Cardiovascular:Heart rate regular rhythm, no murmur [] Lungs & Thorax: Bilateral breath sounds clear to auscultation [] Abdomen: soft, no tenderness, no masses, no pulsatile masses. [] Skin: Warm, dry, no erythema, no rash. [] Back: No tenderness, Extremities: No tenderness, no cyanosis, no clubbing, ROM intact, no edema. [] Neurologic: Alert and oriented X 3, normal motor function, normal sensory function, no focal deficits noted. [] Psychologic: Affect normal, judgement normal, mood normal. [] Current Patient Data Vital Signs Vital Signs Date Time Temp Pulse Resp B/P (MAP) Pulse Ox O2 Delivery O2 Flow Rate FiO2 06/12/20 18:15 98.1 84 16 118/92 (101) 100 Room Air EKG EKG Rate of 81, QRS of 78, QTc of 440, no STEMI [] Radiology/Procedures Radiology/Procedures [] IMPRESSION: 1. No radiographic evidence for acute cardiopulmonary process. Electronically signed by: Benito Bryan MD (06/12/2020 7:34 PM) [facility] Heart Score HEART Score for Chest Pain: HEART Score for Chest Pain Response (Comments) Value History Slighlty/Non-Suspicious 0 ECG Normal 0 Age >45 - < 65 1 Risk Factors >3 Risk Factors or Hx CAD 2 Total 3 Risk Factors: Risk Factors: DM, Current or recent (<one month) smoker, HTN, HLP, family history of CAD, obesity. Risk Scores: Risk Factors: DM, Current or recent (<one month) smoker, HTN, HLP, family history of CAD, obesity. Course & Med Decision Making Course & Med Decision Making Patient is a 49-year-old female who presents with a chief complaint of 2 days of intermittent chest pain/burning Vital signs not concerning. Physical exam noted above. EKG noted and not concerning. Troponin normal. Low risk Wells. PERC negative. Patient currently with no symptoms. Chest x-ray not concerning. On reassessment patient was feeling better and ready to be discharged home. Discussed all findings with patient and advised calling her primary care physician first thing Monday morning to discuss ED visit and need for outpatient stress test including echocardiogram. Advised to keep taking medications as prescribed. Cease cigarette smoking as this could exacerbate or worsen any possible cardiac issues. Advised to come back to the emergency department immediately with any new or concerning symptoms. [] Dragon Disclaimer Dragon Disclaimer This electronic medical record was generated, in whole or in part, using a voice recognition dictation system. Departure Departure: Impression: Primary Impression: Chest pain Additional Impression: Chronic GERD Disposition: 01 DC HOME SELF CARE/HOMELESS Condition: GOOD Referrals: NON,STAFF (PCP) Patient Instructions: Cardiopulmonary Stress Test, Chest Pain (Nonspecific), [id number], Heartburn, [id number] Additional Instructions: Please read all the attached information. As discussed call your primary care physician first thing in the morning on Monday to discuss ED visit, need for follow-up and need for outpatient stress test. As discussed, please come back to the emergency department immediately with any new or concerning symptoms. Please take all your medications as prescribed. Problem Qualifiers MASON ADAME MD Jun 12, 2020 18:54
[2020-06-12 19:03] LABS: BASO % 0 % (0-3); EOS # 0.3 x10^3/uL (0.0-0.7); EOS % 4 % (0-3); HEMATOCRIT 42.5 % (36.0-47.0); HEMOGLOBIN 14.2 g/dL (12.0-15.5); LYMPH # 3.8 x10^3/uL (1.0-4.8); LYMPH % 39 % (24-48); MEAN CORPUSCULAR HEMOGLOBIN 31 pg (25-35); MEAN CORPUSCULAR HGB CONC 34 g/dL (31-37); MEAN CORPUSCULAR VOLUME 94 fL (79-100); MONO # 0.6 x10^3/uL (0.0-1.1); MONO % 6 % (0-9); NEUT % 51 % (31-73); PLATELET COUNT 338 x10^3/uL (140-400); RED BLOOD COUNT 4.54 x10^6/uL (3.50-5.40); RED CELL DISTRIBUTION WIDTH 13.5 % (11.5-14.5); WHITE BLOOD COUNT 9.8 x10^3/uL (4.0-11.0)
[2020-06-12 19:04] LABS: CALCIUM 9.4 mg/dL (8.5-10.1); CREATININE 0.9 mg/dL (0.6-1.0); GFR 66.3
[2020-06-12 19:10] LABS: TOTAL BILIRUBIN 0.2 mg/dL (0.2-1.0)
[2020-06-12 19:22] LABS: BILIRUBIN,URINE NEG (NEG); CLARITY,URINE HAZY; COLOR,URINE YELLOW; GLUCOSE,URINE NEG (NEG); NITRITE,URINE NEG (NEG); UROBILINOGEN,URINE 0.2 mg/dL (0.2 mg/dL)
[2020-06-12 19:23] LABS: BACTERIA,URINE 0 /HPF (0-FEW); SQUAMOUS EPITHELIAL CELL,UR MANY /LPF; WBC,URINE OCC /HPF (0-4)
--- NOTE | 2020-06-12 19:37 | RAD ---
EXAM: AP View of the chest DATE: 06/12/2020 6:28 PM INDICATION: Reason: chest pain / Spl. Instructions: / History: COMPARISON: 11/18/2019 05/03/2018 FINDINGS: The heart is not enlarged. Mediastinal and hilar contours are stable. Aortic calcifications are seen. No focal parenchymal airspace opacity. No pleural effusion or pneumothorax. IMPRESSION: 1. No radiographic evidence for acute cardiopulmonary process. Electronically signed by: Benito Bryan MD (06/12/2020 7:34 PM) [facility]
[2020-06-12 19:49] VITALS: BP 121/87
[2020-06-12] MEDS ORDERED: LIDO:MAALOX 1:1 20 ML SINGLE DOSE. PO ONE (20:00)
--- NOTE | 2020-06-13 07:32 | EKG ---
[address] [address] Test Date: 2020-06-12 Test Time: 18:18:03 Pat Name: SOUMYA MUÑOZ Department: Room: Gender: F Optometric Technologist: : 1970 Requested By: MASON ADAME Order Number: [id number] Reading MD: Measurements Intervals Colby Rate: 81 P: 225 AL: 138 QRS: 22 QRSD: 78 T: 14 QT: 374 QTc: 440 Interpretive Statements SINUS RHYTHM NORMAL ECG RI6.02 No previous ECG available for comparison
== END 2020-06-12 19:56 | disposition home or self-care (01) ==
LOC: ER 18:10
DX: K21.9 Gastro-esophageal reflux disease without esophagitis (principal); R07.2 Precordial pain; E11.9 Type 2 diabetes mellitus without complications; E78.00 Pure hypercholesterolemia, unspecified; I10 Essential (primary) hypertension; G43.909 Migraine, unspecified, not intractable, without status migrainosus; F17.210 Nicotine dependence, cigarettes, uncomplicated; E78.5 Hyperlipidemia, unspecified; Z90.49 Acquired absence of other specified parts of digestive tract; Z98.51 Tubal ligation status
CPT/HCPCS: 36415; 71045; 80053; 81001; 84484; 85025; 93005; 99285

== ENCOUNTER → 2020-09-11 | Outpatient (CLI) | payer BC, OTHER ==
--- NOTE | 2020-09-11 15:17 | CARD ---
MR#: [id number] Date of Study: 09/11/2020 Ordering Physician: MORIS DERAS, Referring Physician: MORIS DERAS, Tech: Gabrielle Barroso [facility] APPROVED REPORT EXAM: Two-dimensional and M-mode echocardiogram with Doppler and color Doppler. Other Information Quality : Good INDICATION Hypertension/HCVD 2D DIMENSIONS RVDd2.6 (2.9-3.5cm)Left Atrium(2D)3.4 (1.6-4.0cm) IVSd0.7 (0.7-1.1cm)Aortic Root(2D)3.2 (2.0-3.7cm) LVDd5.0 (3.9-5.9cm)LVOT Diameter2.3 (1.8-2.4cm) PWd0.7 (0.7-1.1cm)FS (%) 30.0 % LVEF(%)60.0 (>50%) Aortic Valve AoV Peak Jorge.131.0cm/sAoV VTI24.0cm AO Peak GR.7.0mmHgAO Mean GR.3mmHg BETTE (VTI)3.60cm2 LEFT VENTRICLE The left ventricle is normal size. There is normal left ventricular wall thickness. The left ventricu lar systolic function is normal. The Ejection Fraction is 55-60%. There is normal LV segmental wall m otion. The left ventricular diastolic function and filling is normal for age. RIGHT VENTRICLE The right ventricle is normal size. There is normal right ventricular wall thickness. The right ventr icular systolic function is normal. ATRIA The left atrium size is normal. The right atrium size is normal. The interatrial septum is intact wit h no evidence for an atrial septal defect or patent foramen ovale as noted on 2-D or Doppler imaging. AORTIC VALVE The aortic valve is not well visualized. Doppler and Color Flow revealed no significant aortic regurg itation. There is no significant aortic valvular stenosis. MITRAL VALVE The mitral valve is calcified but opens well. Mitral annular calcification is mild. There is no evide nce of mitral valve prolapse. There is no mitral valve stenosis. Doppler and Color Flow revealed no m itral valve regurgitation noted. TRICUSPID VALVE The tricuspid valve is normal in structure and function. Doppler and Color Flow revealed no tricuspid valve regurgitation noted. There is no tricuspid valve stenosis. PULMONIC VALVE The pulmonic valve is not well visualized. Doppler and Color Flow revealed no pulmonic valvular regur gitation. There is no pulmonic valvular stenosis. GREAT VESSELS The aortic root is normal in size. The ascending aorta is normal in size. The IVC is normal in size a nd collapses >50% with inspiration. PERICARDIAL EFFUSION There is no evidence of significant pericardial effusion. Critical Notification Critical Value: No <Conclusion> The left ventricular systolic function is normal. The Ejection Fraction is 55-60%. There is normal LV segmental wall motion. There is no evidence of significant pericardial effusion. Signed by : Dillon Maurice, Electronically Approved : 09/11/2020 15:16:50
== END ==
LOC: ECHO 14:17
PROVIDERS: ATTEND Internal Medicine Cardiovascular Disease
DX: I34.0 Nonrheumatic mitral (valve) insufficiency (principal)
CPT/HCPCS: 93306

== ENCOUNTER 2021-04-30 23:57 | Emergency (ER) | payer BC, OTHER ==
[~2021-04-30] VITALS: Ht 165.1 cm; Wt 97.4 kg
--- NOTE | 2021-05-01 00:19 | PHYS DOC ---
Past History Past Medical History: Anxiety, Diabetes, High Cholesterol, Hypertension, Migraines, Other Additional Past Medical Histor: Gastroparesis Past Surgical History: Cholecystectomy, Tubal ligation Additional Past Surgical Histo: L rotator cuff repair x 3 Smoking: Cigarettes Alcohol Use: None Drug Use: None General Adult HPI: HPI: ".. I got COVID,... I supposed to be better... I was diagnosed on the 04/21.. and to be off isolation.. but I am no better... my oxygen stats.. have been dropping... ".." I am just not better..." .... Patient is a 50 year old female who presents with above hx and complaints diagnosis of COVID on 04/21. Had only one vaccination just before coming down with COVID with in two days of lst vaccination. Pt. stated she had refused to get the vaccination because of denominational concerns but really just did not want to get the vaccination. When she seen other getting sick without the vaccination she decided to get it. Patient states she started getting sick approximately 2 days after the first vaccination. Patient was patient has somewhat extensive medical history with diagnosis of anxiety, hypertension, hyperlipidemia, bronchial asthma, GERD, diabetic gastroparesis, H. pylori gastritis, chest pain, palpitations,bradycardia, abnormal conduction /bridge pathway Lt.anterior descending on Lt in her heart, depression and continued tobacco use 30 pack yr smoking hx. .. Patient has had numerous admission for bronchitis. In the past she has followed with - cardiology. Patient has not had flu vaccination. Patient not had Pneumovax. Review of Systems: Review of Systems: Constitutional: Complains of fever or chills. Complains of generalized malaise Eyes: Denies change in visual acuity HENT: Complains of of nasal congestion, sore throat Respiratory: Complains of cough, wheezing, shortness of breath Cardiovascular: Complaints of discomfort in chest pain GI: Denies abdominal pain, , vomiting, bloody stools or diarrhea. Complains of nausea : Denies dysuria Musculoskeletal: Complains of generalized myalgia and arthralgia Integument: Denies rash Neurologic: Denies headache, focal weakness or sensory changes Endocrine: Denies polyuria or polydipsia Lymphatic: Denies swollen glands Psychiatric: Complains of anxiety Family History: Family History: Daughter has had COVID. Current Medications: Current Meds: See nursing for home meds Allergies: Allergies: Allergies Coded Allergies Type Severity Reaction Last Updated Verified No Known Drug Allergies 10/25/19 No Physical Exam: PE: Constitutional: Moderate acute distress, non-toxic appearance. [] HENT: Normocephalic, atraumatic, bilateral external ears normal, oropharynx moist, no oral exudates, nose: Turbinates clear rhinorrhea postnasal drainage Eyes: PERRLA, EOMI, conjunctiva normal, no discharge. [] Neck: Normal range of motion, no tenderness, supple, no stridor. [] Cardiovascular: Tachycardia heart rate regular rhythm, no murmur []. PMI to left. Sinus rhythm on monitor Lungs & Thorax: Bilateral breath sounds equal apex with scattered wheezes throughout auscultation [] Abdomen: Bowel sounds normal, soft, no tenderness, no masses, no pulsatile masses. Old surgery scars. Obese Skin: Warm, dry, no erythema, no rash. [] Back: No tenderness, no CVA tenderness. [] Extremities: No tenderness, no cyanosis, no clubbing, ROM intact, no edema. No cording appreciated. Left shoulder surgical scars Neurologic: Alert and oriented X 3, moves all extremities on request, does have distal sensory no focal deficits noted. [] Psychologic: Affect anxious, judgement normal, mood depressed EKG: EKG: My interpretation of EKG shows a sinus rhythm 82 bpm. No findings of acute STEMI with contralateral changes. Time of EKG is 124 hours [] Radiology/Procedures: Radiology/Procedures: [address] [address] IMAGING REPORT Signed PATIENT: SOUMYA MUÑOZ ACCOUNT: [id number] : 1970 LOCATION: ER AGE: 50 SEX: F EXAM STATUS: REG ER ORD. PHYSICIAN: SANDRA BORDEN MD REASON: dyspnea PROCEDURE: CT ANGIOGRAPHY CHEST CTA CHEST INDICATION: dyspnea Comparison: None. TECHNIQUE: Following the uneventful administration of intravenous contrast, axial CT sections were obtained through the lungs and upper abdomen. Multiplanar reconstructions and MIP images were obtained. PQRS compliance statement: One or more of the following individualized dose reduction techniques were utilized for this examination: 1. Automated exposure control 2. Adjustment of the mA and/or kV according to patient size 3. Use of iterative reconstruction technique FINDINGS: Pulmonary arteries: No evidence of pulmonary thromboembolic disease Lungs and Airways: No pulmonary mass or consolidation. Stable right upper lobe 5 mm nodule. No abnormality of the central airways. Pleura: The pleural spaces are normal. Heart and Mediastinum: The visualized thyroid is normal in size and attenuation. No axillary or supraclavicular lymphadenopathy. No mediastinal, hilar or retrocrural lymphadenopathy. Normal cardiac size. No pericardial effusion. Coronary artery atherosclerotic disease. Normal caliber thoracic aorta. Aberrant right subclavian artery origin. Abdomen: Limited images through the upper abdomen show no abnormality of the visualized organs. Bones and Soft Tissues: The visualized bones and chest wall soft tissues are w ithin normal limits. IMPRESSION: 1. No evidence of pulmonary thrombolic disease. 2. No pulmonary mass or consolidation. 3. Coronary artery atherosclerotic disease. Electronically signed by: Giovanni Arshad MD (05/01/2021 3:34 AM) [facility] DICTATED AND SIGNED BY: GIOVANNI ARSHAD MD DATE: 05/01/21329 CC: SANDRA BORDEN MD; NON,STAFF ~MTH0 0 [][place] [address] IMAGING REPORT Signed PATIENT: SOUMYA MUÑOZ ACCOUNT: [id number] : 1970 LOCATION: ER AGE: 50 SEX: F EXAM STATUS: REG ER ORD. PHYSICIAN: SANDRA BORDEN MD REASON: dyspnea- Hx COVID PROCEDURE: PORTABLE CHEST 1V XR CHEST 1V INDICATION: dyspnea- Hx COVID . COMPARISON STUDY: None. FINDINGS: Lungs: Normal lung volume. No pulmonary mass or consolidation. The tracheobronchial tree and hilar structures are normal. Pleura: No pleural effusion or pneumothorax. Heart and Mediastinum: The cardiomediastinal silhouette is normal. The great vessels of the thorax are normal. Bones and Soft Tissues: The bones and soft tissues are within normal limits. IMPRESSION: No acute cardiopulmonary process. Electronically signed by: Giovanni Arshad MD (05/01/2021 3:46 AM) [facility] DICTATED AND SIGNED BY: GIOVANNI ARSHAD MD DATE: 05/01/21 0346 CC: SANDRA BORDEN MD; NON,STAFF ~MTH0 0 Heart Score: C/O Chest Pain: Yes HEART Score for Chest Pain: HEART Score for Chest Pain Response (Comments) Value History Slighlty/Non-Suspicious 0 ECG Normal 0 Age >45 - < 65 1 Risk Factors 1 or 2 Risk Factors 1 Troponin < Normal Limit 0 Total 2 Risk Factors: Risk Factors: DM, Current or recent (<one month) smoker, HTN, HLP, family history of CAD, obesity. Risk Scores: Score 0 - 3: 2.5% MACE over next 6 weeks - Discharge Home Score 4 - 6: 20.3% MACE over next 6 weeks - Admit for Clinical Observation Score 7 - 10: 72.7% MACE over next 6 weeks - Early Invasive Strategies Course & Med Decision Making: Course & Med Decision Making Pertinent Labs and Imaging studies reviewed. (See chart for details) Patient continue to monitor sats. Do breathing treatments 4 times a day. Push fluids. Monitor blood sugars. Must stop smoking. Take Zithromax 250 a day for the next 5 days. Follow-up primary care. Follow-up with cardiology. Follow- up with her GI Impression: 1. Viral syndrome- Covid 2. Bronchitis 3. Diabetes= 147 4. Mild elevation in creatinine 1.4 [] Dragon Disclaimer: Dragon Disclaimer: This electronic medical record was generated, in whole or in part, using a voice recognition dictation system. Departure Departure: Referrals: NON,STAFF (PCP) Scripts Azithromycin (ZITHROMAX) 250 Mg Tablet 250 MG PO DAILY for ANTI-BIOTIC for 5 Days, #5 TAB 0 Refills Prov: SANDRA BORDEN MD 05/01/21 Dragon Disclaimer This chart was dictated in whole or in part using Voice Recognition software in a busy, high-work load, and often noisy Emergency Department environment. It may contain unintended and wholly unrecognized errors or omissions. Dragon Disclaimer This chart was dictated in whole or in part using Voice Recognition software in a busy, high-work load, and often noisy Emergency Department environment. It may contain unintended and wholly unrecognized errors or omissions. SANDRA BORDEN MD May 01, 2021 00:18
[2021-05-01] MEDS ORDERED: ALBUTEROL SULFATE 8GM INHALER. INH ONE (01:00)
[2021-05-01] MEDS ORDERED: CONTRAST GIVEN. MC PRN (01:00)
[2021-05-01] MEDS ORDERED: IV RINGERS SOLUTION,LACTATED 1,000 ML IV SCH (01:00)
[2021-05-01] MEDS ORDERED: AZITHROMYCIN 250 MG TABLET. PO ONE (01:00)
[2021-05-01] MEDS ORDERED: SEMA1PEN3 SQ (01:29)
[2021-05-01] MEDS ORDERED: IOHEXOL 350 MG/ML 100 ML VIAL. IV ONE (01:30)
--- NOTE | 2021-05-01 01:38 | EKG ---
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
[2021-05-01 02:30] LABS: BILIRUBIN,URINE NEG (NEG); CLARITY,URINE CLEAR; COLOR,URINE YELLOW; GLUCOSE,URINE >=1000 mg/dL (NEG); NITRITE,URINE NEG (NEG); UROBILINOGEN,URINE 0.2 mg/dL (0.2 mg/dL)
[2021-05-01 02:31] LABS: BACTERIA,URINE FEW /HPF (0-FEW); SQUAMOUS EPITHELIAL CELL,UR OCC /LPF
[2021-05-01 02:40] LABS: CALCIUM 8.4 mg/dL (8.5-10.1); CREATININE 1.4 mg/dL (0.6-1.0); DIRECT BILIRUBIN 0.1 mg/dL (0.0-0.2); GFR 39.6; MAGNESIUM 2.3 mg/dL (1.8-2.4); POTASSIUM 4.2 mmol/L (3.5-5.1); TOTAL BILIRUBIN 0.3 mg/dL (0.2-1.0); TOTAL PROTEIN 6.8 g/dL (6.4-8.2)
[2021-05-01 02:53] LABS: BASO % 0 % (0-3); EOS % 0 % (0-3); HEMATOCRIT 42.9 % (36.0-47.0); HEMOGLOBIN 14.5 g/dL (12.0-15.5); LYMPH # 1.2 x10^3/uL (1.0-4.8); LYMPH % 14 % (24-48); MEAN CORPUSCULAR HEMOGLOBIN 32 pg (25-35); MEAN CORPUSCULAR HGB CONC 34 g/dL (31-37); MEAN CORPUSCULAR VOLUME 95 fL (79-100); MONO # 0.1 x10^3/uL (0.0-1.1); MONO % 1 % (0-9); NEUT # 7.5 x10^3uL (1.8-7.7); NEUT % 85 % (31-73); PLATELET COUNT 339 x10^3/uL (140-400); RED BLOOD COUNT 4.54 x10^6/uL (3.50-5.40); RED CELL DISTRIBUTION WIDTH 13.3 % (11.5-14.5); WHITE BLOOD COUNT 8.9 x10^3/uL (4.0-11.0)
[2021-05-01 02:59] LABS: AMPHETAMINE/METHAMPHETAMINE NEG (NEG); BARBITURATES NEG (NEG); BENZODIAZEPINES NEG (NEG); CANNABINOIDS NEG (NEG); COCAINE NEG (NEG); METHADONE NEG (NEG); OPIATES NEG (NEG); PHENCYCLIDINE NEG (NEG)
--- NOTE | 2021-05-01 03:36 | RAD ---
CTA CHEST INDICATION: dyspnea Comparison: None. TECHNIQUE: Following the uneventful administration of intravenous contrast, axial CT sections were ob tained through the lungs and upper abdomen. Multiplanar reconstructions and MIP images were obtained. PQRS compliance statement: One or more of the following individualized dose reduction techniques were utilized for this examinat ion: 1. Automated exposure control 2. Adjustment of the mA and/or kV according to patient size 3. Use of iterative reconstruction technique FINDINGS: Pulmonary arteries: No evidence of pulmonary thromboembolic disease Lungs and Airways: No pulmonary mass or consolidation. Stable right upper lobe 5 mm nodule. No abnorm ality of the central airways. Pleura: The pleural spaces are normal. Heart and Mediastinum: The visualized thyroid is normal in size and attenuation. No axillary or supra clavicular lymphadenopathy. No mediastinal, hilar or retrocrural lymphadenopathy. Normal cardiac size . No pericardial effusion. Coronary artery atherosclerotic disease. Normal caliber thoracic aorta. Ab errant right subclavian artery origin. Abdomen: Limited images through the upper abdomen show no abnormality of the visualized organs. Bones and Soft Tissues: The visualized bones and chest wall soft tissues are within normal limits. IMPRESSION: 1. No evidence of pulmonary thrombolic disease. 2. No pulmonary mass or consolidation. 3. Coronary artery atherosclerotic disease. Electronically signed by: Bhupendra Thomas MD (05/01/2021 3:34 AM) [facility]
--- NOTE | 2021-05-01 03:49 | RAD ---
XR CHEST 1V INDICATION: dyspnea- Hx COVID . COMPARISON STUDY: None. FINDINGS: Lungs: Normal lung volume. No pulmonary mass or consolidation. The tracheobronchial tree and hilar st ructures are normal. Pleura: No pleural effusion or pneumothorax. Heart and Mediastinum: The cardiomediastinal silhouette is normal. The great vessels of the thorax ar e normal. Bones and Soft Tissues: The bones and soft tissues are within normal limits. IMPRESSION: No acute cardiopulmonary process. Electronically signed by: Bhupendra Thomas MD (05/01/2021 3:46 AM) [facility]
[2021-05-01 04:21] LABS: BGAS PH 7.4 (7.35-7.45)
[2021-05-01 04:45] LABS: INFLUENZA A PATIENT NEGATIVE (NEGATIVE); INFLUENZA B PATIENT NEGATIVE (NEGATIVE)
[2021-05-01] MEDS ORDERED: AZIT250T PO (06:05)
[2021-05-01 06:25] VITALS: BP 129/70
== END 2021-05-01 06:25 | disposition home or self-care (01) ==
LOC: ER 23:57
DX: J40 Bronchitis, not specified as acute or chronic (principal); B34.9 Viral infection, unspecified; E11.9 Type 2 diabetes mellitus without complications; R94.4 Abnormal results of kidney function studies; Z20.822 Contact with and (suspected) exposure to COVID-19
CPT/HCPCS: 36415; 36600; 71045; 71275; 80048; 80076; 80307; 81001; 82550; 82803; 83690; 83735; 83880; 84443; 84484; 85025; 85379; 85610; 85730; 87040; 87426; 87804; 93005; 94640; 96360; 96361; 99285; G0238; J7120; Q9967; 94664

== ENCOUNTER → 2021-07-14 | Outpatient (CLI) | payer BC, OTHER ==
[~2021-07-14] MED LIST changes: +AZIT250T PO; -EMPA10TA PO; +EMPA10TA3 PO; +REGADENOSON 0.4 MG/5 ML DISP.SYRIN. IV ONE; +SEMA1PEN3 SQ
--- NOTE | 2021-07-14 14:27 | RAD ---
MR#: [id number] Date of Study: 07/14/2021 Ordering Physician: MORIS DERAS, Referring Physician: CRISS STRONG Tech: RT Rosa Raymundo) (N) APPROVED REPORT Test Type: Pharmacological Stress Nurse/Tech: RT Breanne (Cristnia) (N) Test Indications: chest pain Cardiac History: none Medications: see EHR Medical History: pre diabetic, smoker, hypertension Resting ECG: sinus rhythm Resting Heart Rate: 66 bpm Resting Blood Pressure: 143/78mmHg Pretest Chest Pain: None Nurse/Tech Notes Consent: The procedure was explained to the patient in lay terms. Informed consent was witnessed. Iván eout was entered into cookdinner. History and Stress Test performed by RT Rosa Raymundo) (N) Pharm. Details Pharmacologic stress testing was performed using 0.4mg per 5ml of regadenoson given intravenously ove r 7-10 seconds. Stress Symptoms Dyspnea, headache POST EXERCISE Reason for Termination: Infusion complete Max HR: 116 bpm Max Blood Pressure: 151/84mmHg INTERPRETATION Stress EKG Conclusion: The resting EKG shows a sinus rhythm with minimal nonspecific T wave changes. The stress EKG shows no significant changes from baseline. No EKG evidence of stress-induced ischemia. Imaging Protocol IMAGE PROTOCOL: Rest Tc-99m/stress Tc-99m 1 day Rest: Stress: Viability: Radiopharm.Tc99m [id number] Sestamibi Dose10.7mCi 32.5mCi Duration 15min. 10min. Img Date 07/14/2021 07/14/2021 Inj-Img [id number]. 60min. Rest Admin Site:IV - Right AntecubitalAdministrator: RT Breanne (Cristina)(N) Stress Admin Site: IV - Right AntecubitalAdministrator: RT Rosa Raymundo)(N) STRESS DATA End Diast. Vol.80.0mlAv. Heart Rate68.0bpm End Syst. Vol.23.0mlCO Index BSA0.0L/min Myocardial Dypb433.0gEject. Tepcmmcb17.0% Stress Rates Pk. Fill Rate2.82EDV/secLVtime Pk. Fill 187.64msec Pk. Empty Rate4.05ESV/secLVtime Pk. Tulje868.42msec /3 Pk. Fill1.45EDV/sec Stress Scores Regional WT0.00Summed WT2.00 Regional WM0.00Summed WM0.00 LV Perfusion The stress scans showed no significant defects. The rest scans showed no significant defects. Nuclear imaging shows no reversible ischemia or infarct. Wall Motion Left ventricular systolic function is intact with an ejection fraction of 71%. LV Perf. Quant 17 Seg. SSS0.00 17 Seg. SRS1.00 17 Seg. SDS0.00 Stress Defect Extent (% LAD)0.00Rest Defect Extent (% LAD)0.00Rev. Defect Extent (% LAD)0.00 Stress Defect Extent (% LCX) 1.30Rest Defect Extent (% LCX)0.00Rev. Defect Extent (% LCX)0.00 Stress Defect Extent (% RCA)0.00Rest Defect Extent (% RCA)0.00Rev. Defect Extent (% RCA)0.00 Stress Defect Extent (% CLARIBEL)0.20Rest Defect Extent (% CLARIBEL)0.00Rev. Defect Extent (% CLARIBEL)0.00 Conclusion 1. Mildly abnormal baseline EKG but no EKG evidence of stress-induced ischemia. 2. Nuclear imaging shows no reversible ischemia or infarct. 3. Intact LV systolic function with an ejection fraction of 71%. 4. Low risk Lexiscan nuclear stress test. Signed by : Neeraj Valenzuela MD Electronically Approved : 07/14/2021 14:26:48
== END ==
LOC: NM 08:03
PROVIDERS: ATTEND Internal Medicine Cardiovascular Disease
DX: R94.31 Abnormal electrocardiogram [ECG] [EKG] (principal); R07.9 Chest pain, unspecified
CPT/HCPCS: 78452; 93017; A9500; J2785

== ENCOUNTER 2021-10-01 15:29 | Emergency (ER) | payer BC, OTHER ==
[~2021-10-01] VITALS: Ht 165.1 cm; Wt 99.8 kg
[~2021-10-01 15:29] MED LIST changes: -REGADENOSON 0.4 MG/5 ML DISP.SYRIN. IV ONE
[2021-10-01 15:50] VITALS: BP 125/96
--- NOTE | 2021-10-01 16:02 | PHYS DOC ---
Past History Past Medical History: Anxiety, Diabetes, High Cholesterol, Hypertension, Migraines, Other Additional Past Medical Histor: Gastroparesis Past Surgical History: Cholecystectomy, Tubal ligation Additional Past Surgical Histo: L rotator cuff repair x 3 Smoking: Cigarettes Alcohol Use: None Drug Use: None General Adult EDM: Chief Complaint: CHEST PAIN HPI: HPI: 51-year-old female presents with chest pain and shortness of breath. The patient states that she has been feeling this way for several days. She was seen in the [facility] ER and there was nothing significant found. She presents today because she feels like she has more chest pressure and is more short of breath. She describes the chest pain as a heaviness and tightness. It is a 10 out of 10. She is tearful. She has no significant history of heart or lung problems. She is a cigarette smoker. No history of DVT or PE. No recent risk factors for the same. Denies fever or chills. Review of Systems: Review of Systems: Constitutional: Denies fever or chills Eyes: Denies change in visual acuity HENT: Denies nasal congestion or sore throat Respiratory: Shortness of breath Cardiovascular: Chest pain GI: Denies abdominal pain, nausea, vomiting, bloody stools or diarrhea : Denies dysuria Musculoskeletal: Denies back pain or joint pain Integument: Denies rash Neurologic: Denies headache, focal weakness or sensory changes Endocrine: Denies polyuria or polydipsia Lymphatic: Denies swollen glands Psychiatric: Denies depression or anxiety Allergies: Allergies: Allergies Coded Allergies Type Severity Reaction Last Updated Verified No Known Drug Allergies 10/25/19 No Physical Exam: PE: Constitutional: Well developed, well nourished, morbidly obese, no acute distress, non-toxic appearance. [] HENT: Normocephalic, atraumatic, bilateral external ears normal, oropharynx moist, no oral exudates, nose normal. [] Eyes: PERRLA, EOMI, conjunctiva normal, no discharge. [] Neck: Normal range of motion, no tenderness, supple, no stridor. [] Cardiovascular: Heart rate 63, regular rhythm, no murmur [] Lungs & Thorax: Bilateral breath sounds clear to auscultation [] Abdomen: Bowel sounds normal, soft, no tenderness, no masses, no pulsatile osito s. [] Skin: Warm, dry, no erythema, no rash. [] Back: No tenderness, no CVA tenderness. [] Extremities: No tenderness, no cyanosis, no clubbing, ROM intact, no edema. [] Neurologic: Alert and oriented X 3, normal motor function, normal sensory function, no focal deficits noted. [] Psychologic: Affect normal, judgement normal, mood anxious. [] EKG: EKG: [] Radiology/Procedures: Radiology/Procedures: [] Impressions: Exam: Chest one view INDICATION: Chest pain, short of air TECHNIQUE: Frontal view of the chest Comparisons: 05/01/2021 FINDINGS: The cardiomediastinal silhouette and pulmonary vessels are within normal limits. The lung and pleural spaces are clear. IMPRESSION: No acute cardiopulmonary process. Electronically signed by: Sarah Morales MD (10/01/2021 4:07 PM) [facility] DICTATED AND SIGNED BY: SARAH MORALES MD DATE: 10/01/21 1607 CC: JUSTINA MAGAÑA DO; HARRISON BALDWIN PA-C ~ Heart Score: C/O Chest Pain: Yes HEART Score for Chest Pain: HEART Score for Chest Pain Response (Comments) Value History Slighlty/Non-Suspicious 0 ECG Normal 0 Age >45 - < 65 1 Risk Factors 1 or 2 Risk Factors 1 Troponin < Normal Limit 0 Total 2 Risk Factors: Risk Factors: DM, Current or recent (<one month) smoker, HTN, HLP, family history of CAD, obesity. Risk Scores: Score 0 - 3: 2.5% MACE over next 6 weeks - Discharge Home Score 4 - 6: 20.3% MACE over next 6 weeks - Admit for Clinical Observation Score 7 - 10: 72.7% MACE over next 6 weeks - Early Invasive Strategies Course & Med Decision Making: Course & Med Decision Making Pertinent Labs and Imaging studies reviewed. (See chart for details) The patient's EKG is unremarkable. Her labs are unremarkable. Her troponin is negative. Her D-dimer is negative. Her chest x-ray is negative for acute findi ngs. I do not have any reason for the patient have chest pain or shortness of breath. Her exam was unremarkable. She is not wheezing. This could be anxiety. I will discharge her with an albuterol MDI and treat her with Pepcid and Protonix prior to discharge just to see if it is helpful. She is stable for discharge at this time. [] Dragon Disclaimer: Gelacio Disclaimer: This electronic medical record was generated, in whole or in part, using a voice recognition dictation system. Departure Departure: Impression: Primary Impression: Chest pain Additional Impression: Shortness of breath Disposition: HOME / SELF CARE / HOMELESS Condition: STABLE Referrals: HARRISON BALDWIN PA-C (PCP) Patient Instructions: Chest Pain (Nonspecific), [id number], Shortness of Breath, [id number] JUSTINA MAGAÑA DO October 01, 2021 16:02
--- NOTE | 2021-10-01 16:09 | RAD ---
Exam: Chest one view INDICATION: Chest pain, short of air TECHNIQUE: Frontal view of the chest Comparisons: 05/01/2021 FINDINGS: The cardiomediastinal silhouette and pulmonary vessels are within normal limits. The lung and pleural spaces are clear. IMPRESSION: No acute cardiopulmonary process. Electronically signed by: Sarah Reynoso MD (10/01/2021 4:07 PM) [facility]
[2021-10-01 16:39] LABS: BASO # 0.2 x10^3/uL (0.0-0.2); BASO % 2 % (0-3); EOS # 0.2 x10^3/uL (0.0-0.7); EOS % 2 % (0-3); HEMATOCRIT 42.6 % (36.0-47.0); HEMOGLOBIN 14.4 g/dL (12.0-15.5); LYMPH # 3.5 x10^3/uL (1.0-4.8); LYMPH % 39 % (24-48); MEAN CORPUSCULAR HEMOGLOBIN 32 pg (25-35); MEAN CORPUSCULAR HGB CONC 34 g/dL (31-37); MEAN CORPUSCULAR VOLUME 93 fL (79-100); MONO # 0.4 x10^3/uL (0.0-1.1); MONO % 5 % (0-9); NEUT # 4.8 x10^3uL (1.8-7.7); NEUT % 53 % (31-73); PLATELET COUNT 291 x10^3/uL (140-400); RED BLOOD COUNT 4.56 x10^6/uL (3.50-5.40); RED CELL DISTRIBUTION WIDTH 12.9 % (11.5-14.5); WHITE BLOOD COUNT 9.2 x10^3/uL (4.0-11.0)
[2021-10-01 16:41] LABS: BARBITURATES NEG (NEG); BENZODIAZEPINES NEG (NEG); CANNABINOIDS NEG (NEG); COCAINE NEG (NEG); METHADONE NEG (NEG); OPIATES NEG (NEG); PHENCYCLIDINE NEG (NEG)
[2021-10-01 16:44] LABS: AMPHETAMINE/METHAMPHETAMINE NEG (NEG); CALCIUM 9.5 mg/dL (8.5-10.1); CREATININE 0.9 mg/dL (0.6-1.0); GFR 65.8; POTASSIUM 4.1 mmol/L (3.5-5.1)
[2021-10-01 16:50] LABS: ALBUMIN 3.9 g/dL (3.4-5.0); ALBUMIN/GLOBULIN RATIO 1.2 (1.0-1.7); TOTAL BILIRUBIN 0.5 mg/dL (0.2-1.0); TOTAL PROTEIN 7.1 g/dL (6.4-8.2)
[2021-10-01 16:55] LABS: BACTERIA,URINE 0 /HPF (0-FEW); CLARITY,URINE CLEAR; COLOR,URINE YELLOW; GLUCOSE,URINE NEG (NEG); NITRITE,URINE NEG (NEG); RBC,URINE 0 /HPF (0-2); SQUAMOUS EPITHELIAL CELL,UR OCC /LPF; UROBILINOGEN,URINE 0.2 mg/dL (0.2 mg/dL); WBC,URINE 0 /HPF (0-4)
[2021-10-01] MEDS ORDERED: FAMOTIDINE 20 MG/2 ML VIAL IVP ONE (17:15)
[2021-10-01] MEDS ORDERED: methylPREDNISolone SOD SUCC PF 125 MG/2 ML VIAL. IV ONE (17:15)
[2021-10-01] MEDS ORDERED: ALBUTEROL SULFATE 8GM INHALER. INH ONE (17:15)
[2021-10-01] MEDS ORDERED: PANTOPRAZOLE IV 40 MG VIAL. IVP ONE (17:15)
[2021-10-01] MEDS ORDERED: methylPREDNISolone SOD SUCC PF 125 MG/2 ML VIAL. ONE (17:16)
[2021-10-01] MEDS ORDERED: PANTOPRAZOLE IV 40 MG VIAL. ONE (17:16)
[2021-10-01] MEDS ORDERED: FAMOTIDINE 20 MG/2 ML VIAL ONE (17:16)
== END 2021-10-01 17:24 | disposition home or self-care (01) ==
LOC: ER 15:29
DX: R07.89 Other chest pain (principal); R06.02 Shortness of breath; F41.9 Anxiety disorder, unspecified; E11.9 Type 2 diabetes mellitus without complications; E78.00 Pure hypercholesterolemia, unspecified; I10 Essential (primary) hypertension; G43.909 Migraine, unspecified, not intractable, without status migrainosus; F17.210 Nicotine dependence, cigarettes, uncomplicated
CPT/HCPCS: 36415; 71045; 80053; 80307; 81001; 84484; 85025; 85379; 93005; 96374; 96375; 99285; C9113; J2930; J3490